=== PATIENT | male | born 1930 | race Caucasian/White ===

== ENCOUNTER 2017-04-13 06:01 | Inpatient (IN) | payer MEDICARE, MEDICAID ==
[~2017-04-13] VITALS: Ht 165.1 cm; Wt 75.0 kg
[~2017-04-13 06:01] MED LIST: ALIG4CAP PO; APRI0.372; ASPI325T PO; ATOR20TA15; AVOD0.5C PO; B-CO1TAB3; FINA5TAB2; METO25TA3; OMEP20TA PO; RIVA4.5C; VITA100064 PO; [UNRECOGNIZED DRUG - CODE]
[2017-04-13] MEDS ORDERED: INSULIN HUMAN REGULAR 1,000 UNITS/10 ML VIAL SQ PRN (06:30)
[2017-04-13] MEDS ORDERED: CHLORHEXIDINE GLUCONATE 2 % 1 PACK (2 CLOTHS) TOPICAL PRN (06:30)
[2017-04-13] MEDS ORDERED: metroNIDAZOLE 500 MG INJ 100 ML IV SCH (06:30)
[2017-04-13] MEDS ORDERED: POVIDONE IODINE 5% (ANTISEPSIS KIT) 4 APPLICATIONS EACH NARE PRN (06:30)
[2017-04-13] MEDS ORDERED: SODIUM CHLORID 0.9% 500 ML IV PRN (06:30)
[2017-04-13] MEDS ORDERED: ALVIMOPAN 12 MG CAPSULE - On Call PO SCH (06:30)
[2017-04-13] MEDS ORDERED: LACTATED RINGER'S 1000 ML IV PRN (06:30)
[2017-04-13] MEDS ORDERED: METOPROLOL TARTRATE 25 MG TAB PO PRN (06:30)
[2017-04-13] MEDS ORDERED: ceFAZolin 2 GM PREMIX 50 ML IV SCH (06:30)
[2017-04-13] MEDS ORDERED: THROMBIN (TOPICAL) 5,000 UNIT VIAL ONE (07:03)
[2017-04-13] MEDS ORDERED: BUPIVACAINE/EPINEPHRINE 0.25% 50 ML VIAL ONE (07:03)
[2017-04-13] MEDS ORDERED: GELATIN 12 MM/7 MM FOAM ONE (07:03)
[2017-04-13] MEDS ORDERED: LIDOCAINE 2%/EPINEPHrine PF 1:200,000 20ML SDV ONE (07:03)
[2017-04-13] MEDS ORDERED: GENTAMICIN SULFATE 80 MG/2 ML VIAL ONE (07:03)
[2017-04-13] MEDS ORDERED: BACITRACIN TOP OINT 15 GM TUBE ONE (07:03)
[2017-04-13] MEDS ORDERED: BUPIVACAINE LIPOSOME PF 1.3% 20 ML VIAL ONE (07:13)
[2017-04-13 07:31] LABS: BICARBONATE 27.8 MEQ/L (21.0-32.0); POTASSIUM 3.9 MEQ/L (3.5-5.1)
[2017-04-13] MEDS ORDERED: FAMOTIDINE 20 MG/2 ML VIAL ONE (08:12)
[2017-04-13] MEDS ORDERED: MIDAZOLAM HCL 2 MG/2 ML VIAL ONE (08:12)
[2017-04-13] MEDS: SODIUM CHLORIDE 0.9% FLUSH 10 ML FLUSH IV FLUSH SCH ×2 (11:30→21:00)
[2017-04-13] MEDS ORDERED: *ONDANSETRON 4 MG VIAL PERIprocedural Use ONLY ONE (11:37)
[2017-04-13] MEDS ORDERED: Post-op Orders (for Pharmacy) MISC XX ONE (11:45)
[2017-04-13] MEDS ORDERED: BENZOCAINE 20% ORAL SPR 60 ML CAN MT PRN (11:45)
[2017-04-13] MEDS ORDERED: NALOXONE HCL 0.4 MG/ML AMP IV PUSH PRN (11:45)
[2017-04-13] MEDS ORDERED: *morphine SULFATE 8 MG/ML PERIprocedure ONLY ONE (11:53)
[2017-04-13] MEDS ORDERED: NEOSTIGMINE 3 MG/3 ML SYR IV ONE (12:00)
[2017-04-13] MEDS ORDERED: ONDANSETRON HCL 4 MG/2 ML VIAL IV PUSH ONE (12:00)
[2017-04-13] MEDS ORDERED: ROCURONIUM INJ 50 MG/5 ML SYRINGE IV PUSH ONE (12:00)
[2017-04-13] MEDS ORDERED: PROPOFOL 200 MG/20 ML AMP IV ONE (12:00)
[2017-04-13] MEDS ORDERED: GLYCOPYRROLATE 1 MG/5 ML SYRINGE IV PUSH ONE (12:00)
[2017-04-13] MEDS ORDERED: DEXAMETHASONE SOD PHOS 4 MG/ML VIAL IV ONE (12:00)
[2017-04-13] MEDS ORDERED: LIDOCAINE HCL 1% PF 5 ML AMPULE OTHER ONE (12:00)
[2017-04-13] MEDS ORDERED: PHENYLEPH/NS 1000 MCG/10 ML SYR IV ONE (12:00)
[2017-04-13] MEDS: D5-NS + KCL 20 MEQ INJ 1,000 ML IV SCH ×2 (12:35→22:30)
--- NOTE | 2017-04-13 13:14 | EKG ---
Date Performed: 04/13/2017 Time Performed: 07:10:58 PTAGE: 87 years EKG: Sinus rhythm WITH SINUS ARRHYTHMIA NORMAL ECG PREVIOUS TRACING : 06/03/2014 12.03 Compared to prior tracing no significant change DOCTOR: Mehrdad Girard Interpretating Date/Time 04/13/2017 13:11:29
[2017-04-13] MEDS ORDERED: DO NOT ADM ANY ANTICOAGULANT DRUGS PRN (13:15)
--- NOTE | 2017-04-13 14:42 | PD.CONS ---
HPI [facility] Consult Requested By Dr. Morrison Reason for Consult Medical management Primary Care Physician Tremaine Adames MD Diagnoses: History of Present Illness Mr. Shore is an 87-year-old elderly male with significant past medical history of hypertension, COPD, CABG 2, AAA repair, NPH with VESSEL SCRAPPER HELPER shunt. Patient has a recent diagnosis of colon cancer, oncologist is Dr. Pena. Patient was admitted under Dr. Morrison's services and underwent laparoscopic partial colectomy as well as revision of VESSEL SCRAPPER HELPER shunt. Patient is resting comfortably, hemodynamically stable. He is currently being monitored in the ICU. He remains nothing by mouth. Denies any chest pain, no shortness of breath. Hospitalist services requested for medical management. (Megan Whalen) Review of Systems Constitutional: DENIES: Diaphoretic episodes, Fatigue, Fever, Weight gain, Weight loss, Chills, Dizziness, Change in appetite, Night Sweats Endocrine: DENIES: Heat/cold intolerance, Polydipsia, Polyuria, Polyphagia Eyes: DENIES: Blurred vision, Diplopia, Eye inflammation, Eye pain, Vision loss , Photosensitivity, Double Vision Ears, nose, mouth, throat: DENIES: Tinnitus, Hearing loss, Vertigo, Nasal discharge, Oral lesions, Throat pain, Hoarseness, Ear Pain, Running Nose, Epistaxis, Sinus Pain, Toothache, Odynophagia Respiratory: DENIES: Apneas, Cough, Snoring, Wheezing, Hemoptysis, Sputum production, Shortness of breath Cardiovascular: DENIES: Chest pain, Palpitations, Syncope, Dyspnea on Exertion , PND, Lower Extremity Edema, Orthopnea, Claudication Gastrointestinal: COMPLAINS OF: Abdominal pain (surgical site ), DENIES: Black stools, Bloody stools, Constipation, Diarrhea, Nausea, Vomiting, Difficulty Swallowing, Anorexia Genitourinary: DENIES: Sexual dysfunction, Urinary frequency, Urinary incontinence, Urgency, Hematuria, Dysuria, Nocturia, Penile Discharge, Testicular Pain, Testicular Swelling Musculoskeletal: DENIES: Joint pain, Muscle aches, Stiffness, Joint Swelling, Back pain, Neck pain Integumentary: DENIES: Abnormal pigmentation, Nail changes, Pruritus, Rash Hematologic/lymphatic: DENIES: Bruising, Lymphadenopathy Immunologic/allergic: DENIES: Eczema, Urticaria Neurologic: DENIES: Abnormal gait, Headache, Localized weakness, Paresthesias, Seizures, Speech Problems, Tremor, Poor Balance Psychiatric: DENIES: Anxiety, Confusion, Mood changes, Depression, Hallucinations, Agitation, Suicidal Ideation, Homicidal Ideation, Delusions ( Megan Whalen) Past Family Social History Past Medical History Colon cancer Stroke Hypertension COPD, not on oxygen at home Coronary artery disease Abdominal aneurysm repair DVT to the right leg Diverticulitis Hyperlipidemia Normal pressure hydrocephalus, has a VESSEL SCRAPPER HELPER shunt GERD Arthritis BPH Past Surgical History VESSEL SCRAPPER HELPER shunt placement on 06/10/[address] Benedict CABG 2 in 2011 Abdominal aneurysm repair Reported Medications Reported Meds & Active Scripts Active Reported Vitamin D3 (Cholecalciferol) 1,000 Unit Tab 1,000 Units PO DAILY Omeprazole 20 Mg Tab 20 Mg PO DAILY B50 Complex Tr (B-Complex W/Biotin & Folic Acid ER) 1 Tab Avodart (Dutasteride) 0.5 Mg Cap 0.5 Mg PO DAILY Aspirin 325 Mg Tab 325 Mg PO DAILY Align (Lactobacillus Rhamnosus (GG)) 4 Mg (1 Billion Cell) Cap 4 Mg PO DAILY Rivastigmine 4.5 Mg Cap Finasteride 5 Mg Tab Atorvastatin (Atorvastatin Calcium) 20 Mg Tab Metoprolol Tartrate 25 Mg Tab Suprep Bowel Prep Liq (Sodium Sulfate-Potassium Sulfate Liq) 480 Ml Soln Apriso (Mesalamine) 0.375 Gm Caper (Megan Whalen) Allergies: Coded Allergies: No Known Allergies (Unverified , 04/13/17) Active Ordered Medications Inpatient Medications Acetaminophen 100 ml @ 400 mls/hr Q6HR IV ; Start 04/13/17 at 18:00; Stop 04/15 at 12:14 Alvimopan (Entereg) 12 mg BID PO ; Start 04/14/17 at 21:00; Stop 04/21/17 at 09 :01 Atorvastatin Calcium (Lipitor) 20 mg DAILY PO ; Start 04/14/17 at 09:00 Benzocaine (Hurricaine 20% Oral Spr) 1 spray UNSCH X1 PRN MT SEE LABEL COMMENTS ; Start 04/13/17 at 11:45; Stop 04/13/17 at 13:15; Status DC Cefazolin Sodium 1000 mg/Sodium Chloride 100 ml @ 200 mls/hr Q8H IV ; Start at 14:00; Stop 04/18/17 at 13:59 Cefazolin Sodium/ Dextrose 50 ml @ 150 mls/hr FITTING ROOM SUPERVISOR IV Last administered on 04/13/17t 07:02; Start 04/13/17 at 06:30; Stop 04/14/17 at 06:29 Chlorhexidine Gluconate (Chlorhexidine 2% Cloth) 3 pack FITTING ROOM SUPERVISOR PRN TOPICAL SEE LABEL COMMENTS Last administered on 04/13/17t 06:15; Start 04/13/17 at 06:30 ; Stop 04/16/17 at 06:29 Diphenhydramine HCl (Benadryl Inj) 25 mg Q6HR PRN IV PUSH ITCHING; Start at 18:00 Enoxaparin Sodium (Lovenox Inj) 40 mg Q24H SQ ; Start 04/14/17 at 10:00 Famotidine (Pepcid Inj) 20 mg Q12HR IV PUSH ; Start 04/13/17 at 21:00 Finasteride (Proscar) 5 mg DAILY PO ; Start 04/14/17 at 09:00; Stop 04/14/17 at 09:00; Status DC Insulin Human Regular (NovoLIN R INJ) See Protocol Table ... FITTING ROOM SUPERVISOR PRN SQ SEE PROTOCOL TABLE; Start 04/13/17 at 06:30; Stop 04/16/17 at 06:29 Lactated Ringer's 1,000 ml @ 30 mls/hr Q24H PRN IV SEE LABEL COMMENTS; Start 04/13/17 at 06:30; Stop 04/16/17 at 06:29 Magnesium Hydroxide (Milk Of Magnesia Liq) 30 ml BID PRN PO CONSTIPATION; Start 04/13/17 at 21:00 Metoprolol Tartrate (Lopressor) 25 mg DAILY PO ; Start 04/14/17 at 09:00 Metronidazole 100 ml @ 200 mls/hr Q8H IV ; Start 04/13/17 at 15:00; Stop at 07:29 Miscellaneous Information ALL NURSING DEPARTME... UNSCH PRN .XX SEE LABEL COMMENTS; Start 04/13/17 at 13:15; Stop 04/14/17 at 13:14 Miscellaneous Information (Post-op Orders (for Pharmacy)) STAT ONCE XX ; Start 04/13/17 at 11:45; Stop 04/13/17 at 13:19; Status DC Naloxone HCl (Narcan Inj) 0.4 mg UNSCH PRN IV PUSH SEE LABEL COMMENTS; Start 04/13/17 at 11:45 Ondansetron HCl (Zofran Inj) 4 mg Q6H PRN IV PUSH NAUSEA OR VOMITING; Start at 18:00 Potassium Chloride/Dextrose/ Sod Cl 1,000 ml @ 95 mls/hr [id number] IV Last administered on 04/13/17 12:35; Start 04/13/17 at 13:15 Povidone Iodine (Betadine 5% Antisepsis Kit) 1 applic FITTING ROOM SUPERVISOR PRN EACH NARE SEE LABEL COMMENTS Last administered on 04/13/17 07:00; Start 04/13/17 at 06:30 ; Stop 04/16/17 at 06:29 Sodium Chloride (NS Flush) 2 ml BID IV FLUSH Last administered on 04/13/17 11: 30; Start 04/13/17 at 11:45 Family History Positive for breast cancer and 1 sister, had another brother with lung cancer Social History Patient is , lives at home with his . Has grown children. Quit smoking 1968, rare alcohol use, no substance abuse. Occasionally uses a walker when he is outside of his home. (Megan Whalen) Physical Exam Vital Signs Vital Signs Date Time Temp Pulse Resp B/P (MAP) Pulse Ox O2 Delivery O2 Flow Rate FiO2 04/13/17 12:15 58 16 153/70 (97) 100 Nasal Cannula 2 04/13/17 12:00 62 16 163/70 (101) 98 Nasal Cannula 2 04/13/17 11:45 64 16 153/70 (97) 99 Nasal Cannula 2 04/13/17 11:30 97.7 70 16 132/59 (83) 97 Nasal Cannula 2 04/13/17 06:50 98.8 95 18 142/67 (92) 96 Physical Exam GENERAL: This is a well-nourished, well-developed patient, in no apparent distress. SKIN: No rashes, ecchymoses or lesions. Cool and dry. HEAD: Atraumatic. Normocephalic. No temporal or scalp tenderness. EYES: Pupils equal round and reactive. Extraocular motions intact. No scleral icterus. No injection or drainage. ENT: Nose without bleeding, purulent drainage or septal hematoma. Throat without erythema, tonsillar hypertrophy or exudate. Uvula midline. Airway patent. NECK: Trachea midline. No JVD or lymphadenopathy. Supple, nontender, no meningeal signs. CARDIOVASCULAR: Regular rate and rhythm with soft murmurs, no gallops, no rubs. RESPIRATORY: Clear to auscultation. Breath sounds equal bilaterally. No wheezes , rales, or rhonchi. GASTROINTESTINAL: Abdomen soft, has midline abdominal incision with dressing. A small amount of sanguinous drainage to distal aspect of dressing. Bowel sounds hypoactive 4. MUSCULOSKELETAL: Extremities without clubbing, cyanosis, or edema. No joint tenderness, effusion, or edema noted. No calf tenderness. Negative Homans sign bilaterally. NEUROLOGICAL: Awakes to voice, oriented 3. Following ommands, answering questions appropriately. Speech is clear. No focal deficits. Laboratory Laboratory Tests Test 04/13/17 06:35 Blood Urea Nitrogen 16 Creatinine 0.98 Random Glucose 99 Calcium Level 9.1 Sodium Level 140 Potassium Level 3.9 Chloride Level 104 Carbon Dioxide Level 27.8 Anion Gap 8 Estimat Glomerular Filtration Rate 72 (Megan Whalen) Result Diagram: 04/13/17 0635 A/P Diagnosis: (1) status post lap partial colectomy and revision of VESSEL SCRAPPER HELPER shunt Status: Acute (2) Colon adenocarcinoma ICD Codes: C18.9 - Malignant neoplasm of colon, unspecified Status: Acute (3) NPH (normal pressure hydrocephalus) ICD Codes: G91.2 - Normal pressure hydrocephalus Status: Chronic (4) S/P VESSEL SCRAPPER HELPER shunt ICD Codes: Z98.2 - S/P VESSEL SCRAPPER HELPER shunt Status: Chronic (5) BPH (benign prostatic hypertrophy) ICD Codes: N40.0 - BPH (benign prostatic hypertrophy) Status: Chronic (6) CAD (coronary artery disease) ICD Codes: I25.10 - CAD (coronary artery disease) Status: Chronic (7) COPD (chronic obstructive pulmonary disease) ICD Codes: J44.9 - Chronic obstructive pulmonary disease, unspecified Status: Chronic (8) History of stroke ICD Codes: Z86.73 - Personal history of transient ischemic attack (TIA), and cerebral infarction without residual deficits Status: Chronic (9) Hypertension ICD Codes: I10 - Essential (primary) hypertension Status: Chronic (10) Hyperlipidemia ICD Codes: E78.5 - Hyperlipidemia, unspecified Status: Chronic (11) BPH (benign prostatic hyperplasia) ICD Codes: N40.0 - Benign prostatic hyperplasia without lower urinary tract symptoms Status: Chronic Assessment and Plan Thank you for this consultation, we will assist with medical management 87-year-old elderly male with recent diagnosis of colon cancer, underwent laparoscopic partial colectomy and revision of VESSEL SCRAPPER HELPER shunt. -Continue postoperative surgical care -Continue with IV fluid -Pain management -wound care -Postoperative antibiotics -Nothing by mouth status -BMP and CBC in the morning History of NPH, VESSEL SCRAPPER HELPER shunt in place. Status post revision of VESSEL SCRAPPER HELPER shunt -Continue to monitor surgical site COPD, stable -Duo nebs 4 times a day as needed for wheezing Hypertension, stable -Continue with metoprolol 25 milligrams by mouth daily BPH -Continue with Proscar Hyperlipidemia -Continue with Lipitor 20 mg by mouth daily Continue with Pepcid 20 mg IV twice a day for GI prophylaxis Continue with Lovenox 40 mg subcutaneous daily for DVT prophylaxis, as well as SCDs Repeat labs in the morning Plan of care has been discussed with the patient, attending and registered nurse. Further management of the patient will be dependent on the hospital course This patient was seen by myself and Dr. Pool, this consultation is written on his behalf (Megan Whalen) Assessment and Plan pt is seen & examined d/w pt d/w Megan d/w RN See consult see orders thanks for the consult will f/u Radha Pool MD Apr 13, 2017 16:25 (Radha Pool MD) Problem Qualifiers (1) CAD (coronary artery disease): Qualified Codes: I25.10 - Atherosclerotic heart disease of jackson coronary artery without angina pectoris (2) COPD (chronic obstructive pulmonary disease): Qualified Codes: J44.9 - Chronic obstructive pulmonary disease, unspecified (3) Hypertension: Qualified Codes: I10 - Essential (primary) hypertension (4) Hyperlipidemia: Qualified Codes: E78.5 - Hyperlipidemia, unspecified (5) BPH (benign prostatic hyperplasia): Megan Whalen Apr 13, 2017 14:42 Radha Pool MD Apr 14, 2017 15:02
[2017-04-13 15:00] VITALS: PULSE 82
[2017-04-13 16:00] VITALS: BP_SYST 143; BP_SYST 166; BP_DIAS 65; BP_DIAS 82; PULSE 54; PULSE 74; PULSE 81; RESP 14; RESP 16; TEMP 97.2; TEMP 97.4; O2SAT 100; O2SAT 99
--- NOTE | 2017-04-13 16:25 | HHI.PR ---
Objective Objective Results - Vital Signs Date Time Temp Pulse Resp B/P (MAP) Pulse Ox O2 Delivery O2 Flow Rate FiO2 04/13/17 13:00 54 16 121/53 (75) 100 Nasal Cannula 2 04/13/17 12:45 58 16 133/60 (84) 100 Nasal Cannula 2 04/13/17 12:30 56 16 134/61 (85) 100 Nasal Cannula 2 04/13/17 12:15 58 16 153/70 (97) 100 Nasal Cannula 2 04/13/17 12:00 62 16 163/70 (101) 98 Nasal Cannula 2 04/13/17 11:45 64 16 153/70 (97) 99 Nasal Cannula 2 04/13/17 11:30 97.7 70 16 132/59 (83) 97 Nasal Cannula 2 04/13/17 06:50 98.8 95 18 142/67 (92) 96 I/O 04/12/17 04/12/17 04/12/17 04/13/17 04/13/17 04/13/17 07:00 15:00 23:00 07:00 15:00 23:00 Intake Total 2150 ml Output Total 520 ml Balance 1630 ml Intake IV Total 50 ml Other 2100 ml Output Urine Total 500 ml Estimated Blood Loss 20 ml Result Diagram: 04/13/17 0635 Other Results Laboratory Tests Test 04/13/17 06:35 Blood Urea Nitrogen 16 Creatinine 0.98 Random Glucose 99 Calcium Level 9.1 Sodium Level 140 Potassium Level 3.9 Chloride Level 104 Carbon Dioxide Level 27.8 Anion Gap 8 Estimat Glomerular Filtration Rate 72 Physical Exam Physical Exam pt is seen & examined d/w pt d/w Megan d/w RN See consult see orders thanks for the consult will f/u Radha Pool MD Apr 13, 2017 16:25
[2017-04-13] MEDS: metroNIDAZOLE 500 MG INJ 100 ML IV SCH ×2 (16:26→21:53)
[2017-04-13] MEDS ORDERED: RESP: ALBUTEROL 2.5 MG/IPRATROPIUM 0.5 MG NEB (PRN) NEB (16:30)
[2017-04-13] MEDS: ACETAMINOPHEN 1000 MG/100 ML 100 ML IV SCH ×2 (17:33→23:10)
[2017-04-13 18:00] VITALS: PULSE 62
[2017-04-13] MEDS ORDERED: diphenhydrAMINE HCL 50 MG/ML VIAL IV PUSH PRN (18:00)
[2017-04-13 20:00] VITALS: BP 142/66; PULSE 60; RESP 22; TEMP 97.9; O2SAT 98
[2017-04-13 20:30] VITALS: O2SAT 95
[2017-04-13] MEDS ORDERED: MAGNESIUM HYDROXIDE SUSP 30 ML CUP PO PRN (21:00)
[2017-04-13] MEDS: FAMOTIDINE 20 MG/2 ML VIAL IV PUSH SCH (21:00)
[2017-04-13 22:00] VITALS: PULSE 62
[2017-04-14] VITALS (13 sets, daily range): BP systolic 100–179; BP diastolic 49–78; PULSE 58–70; RESP 13–23; TEMP 97.6–98.6; O2SAT 96–100
[2017-04-14] MEDS: ACETAMINOPHEN 1000 MG/100 ML 100 ML IV SCH ×4 (05:06→23:05)
[2017-04-14 05:30] LABS: AUTOMATED NEUTROPHIL # 8.2 TH/MM3 (1.8-7.7); BASOPHIL % 0.1 % (0.0-2.0); HEMATOCRIT 30.4 % (39.0-51.0); LYMPH % 5.6 % (9.0-44.0); LYMPHOCYTE # 0.6 TH/MM3 (1.0-4.8); MEAN CELL VOLUME 90.7 FL (80.0-100.0); MEAN CORPUSCULAR HEMOGLOBIN 29.7 PG (27.0-34.0); MEAN CORPUSCULAR HGB CONC 32.8 % (32.0-36.0); MONO % 12.5 % (0.0-8.0); NEUT % 81.8 % (16.0-70.0); PLATELET COUNT 169 TH/MM3 (150-450); RED BLOOD COUNT 3.35 MIL/MM3 (4.50-5.90); RED CELL DISTRIBUTION WIDTH 22.1 % (11.6-17.2)
[2017-04-14 05:42] LABS: BICARBONATE 26.2 MEQ/L (21.0-32.0); POTASSIUM 4.5 MEQ/L (3.5-5.1)
[2017-04-14 05:49] LABS: HEMO FLAGS AUTO DIFF
[2017-04-14] MEDS: metroNIDAZOLE 500 MG INJ 100 ML IV SCH (06:14)
[2017-04-14 08:04] LABS: BANDS 27 % (0-6); NEUTROPHIL # MANUAL DIFF 8.7 TH/MM3 (1.8-7.7); POLYS (SEG NEUTROPHILS) 60 % (16-70); WBC DIFF SAMPLE 100
[2017-04-14 08:05] LABS: PLATELET ESTIMATE SMEAR NORMAL (NORMAL); PLATELET MORPHOLOGY NORMAL (NORMAL); SCAN/DIFF FINAL DIFF MANUAL
[2017-04-14 08:06] LABS: OVALOCYTES 1+ (NORMAL)
[2017-04-14] MEDS ORDERED: ALVIMOPAN 12 MG CAPSULE - Post-op dosing PO SCH (09:00)
[2017-04-14] MEDS ORDERED: FINASTERIDE 5 MG TAB PO SCH (09:00)
[2017-04-14] MEDS: METOPROLOL TARTRATE 25 MG TAB PO SCH (09:59)
[2017-04-14] MEDS: SODIUM CHLORIDE 0.9% FLUSH 10 ML FLUSH IV FLUSH SCH ×2 (09:59→20:58)
[2017-04-14] MEDS: ATORVASTATIN 20 MG TAB PO SCH (09:59)
[2017-04-14] MEDS: ENOXAPARIN SODIUM 40 MG/0.4 ML SYRINGE SQ SCH (10:00)
[2017-04-14] MEDS: FINASTERIDE 5 MG TAB PO SCH (10:00)
[2017-04-14] MEDS: FAMOTIDINE 20 MG/2 ML VIAL IV PUSH SCH ×2 (10:08→20:58)
[2017-04-14] MEDS: D5-NS + KCL 20 MEQ INJ 1,000 ML IV SCH ×2 (10:08→20:51)
--- NOTE | 2017-04-14 13:20 | HHI.PR ---
Subjective Subjective Notes Says he is having some hallucinations Some moderate pains in abdomen Objective Vitals/I&O Vital Signs Date Time Temp Pulse Resp B/P (MAP) Pulse Ox O2 Delivery O2 Flow Rate FiO2 04/14/17 09:54 97 Nasal Cannula 2.00 04/14/17 06:00 64 04/14/17 04:00 98.2 13 100/49 (66) Labs Laboratory Tests Test 04/14/17 04:37 White Blood Count 10.0 Red Blood Count 3.35 Hemoglobin 10.0 Hematocrit 30.4 Mean Corpuscular Volume 90.7 Mean Corpuscular Hemoglobin 29.7 Mean Corpuscular Hemoglobin Concent 32.8 Red Cell Distribution Width 22.1 Platelet Count 169 Mean Platelet Volume 8.8 Neutrophils (%) (Auto) 81.8 Lymphocytes (%) (Auto) 5.6 Monocytes (%) (Auto) 12.5 Eosinophils (%) (Auto) 0.0 Basophils (%) (Auto) 0.1 Neutrophils # (Auto) 8.2 Lymphocytes # (Auto) 0.6 Monocytes # (Auto) 1.3 Eosinophils # (Auto) 0.0 Basophils # (Auto) 0.0 CBC Comment AUTO DIFF Differential Total Cells Counted 100 Neutrophils % (Manual) 60 Band Neutrophils % 27 Lymphocytes % 6 Monocytes % 7 Neutrophils # (Manual) 8.7 Differential Comment FINAL DIFF MANUAL Platelet Estimate NORMAL Platelet Morphology Comment NORMAL Ovalocytes 1+ Blood Urea Nitrogen 17 Creatinine 1.00 Random Glucose 153 Calcium Level 7.8 Sodium Level 141 Potassium Level 4.5 Chloride Level 108 Carbon Dioxide Level 26.2 Anion Gap 7 Estimat Glomerular Filtration Rate 71 Abdomen: Non-distended, Post-op tenderness Narrative Exam Dressing clean and dry A/P Assessment and Plan POD #1 Open partial colectomy Urine output adequate Minimize pain meds due to visual hallucinations - pt. states he had this during last hospitalization in [place] Plan: Keep in [facility] today Transfer to floor in AM and remove martin cath Modesto Romero MD Apr 14, 2017 13:20
--- NOTE | 2017-04-14 14:30 | HHI.PR ---
Subjective History of Present Illness I'm okay Belly pain is in control/pain meds are helping Nausea or vomiting Positive flatus No BM No fever or chills No chest pain or shortness of breath Offers no other complain Vitals/Results Vital Signs Vital Signs Date Time Temp Pulse Resp B/P (MAP) Pulse Ox O2 Delivery O2 Flow Rate FiO2 04/14/17 14:00 66 04/14/17 12:00 68 04/14/17 12:00 98.0 68 23 159/67 (97) 98 04/14/17 10:00 68 04/14/17 09:54 97 Nasal Cannula 2.00 04/14/17 08:00 63 04/14/17 08:00 98.1 63 20 135/63 (87) 97 04/14/17 07:00 97 Nasal Cannula 2.00 04/14/17 06:00 64 04/14/17 04:00 98.2 60 13 100/49 (66) 99 04/14/17 04:00 60 04/14/17 02:00 58 04/14/17 00:00 58 04/14/17 00:00 98.0 58 17 150/66 (94) 100 04/13/17 22:00 62 04/13/17 20:30 95 Nasal Cannula 2.00 04/13/17 20:00 97.9 60 22 142/66 (91) 98 04/13/17 20:00 60 04/13/17 19:00 100 Nasal Cannula 2.00 04/13/17 18:00 62 04/13/17 16:00 81 04/13/17 16:00 97.4 54 14 143/65 (91) 100 04/13/17 15:00 82 CBC/BMP: 04/14/17 0437 04/14/17 0437 Lab Results Laboratory Tests Test 04/14/17 04:37 White Blood Count 10.0 TH/MM3 Red Blood Count 3.35 MIL/MM3 Hemoglobin 10.0 GM/DL Hematocrit 30.4 % Mean Corpuscular Volume 90.7 FL Mean Corpuscular Hemoglobin 29.7 PG Mean Corpuscular Hemoglobin Concent 32.8 % Red Cell Distribution Width 22.1 % Platelet Count 169 TH/MM3 Mean Platelet Volume 8.8 FL Neutrophils (%) (Auto) 81.8 % Lymphocytes (%) (Auto) 5.6 % Monocytes (%) (Auto) 12.5 % Eosinophils (%) (Auto) 0.0 % Basophils (%) (Auto) 0.1 % Neutrophils # (Auto) 8.2 TH/MM3 Lymphocytes # (Auto) 0.6 TH/MM3 Monocytes # (Auto) 1.3 TH/MM3 Eosinophils # (Auto) 0.0 TH/MM3 Basophils # (Auto) 0.0 TH/MM3 CBC Comment AUTO DIFF Differential Total Cells Counted 100 Neutrophils % (Manual) 60 % Band Neutrophils % 27 % Lymphocytes % 6 % Monocytes % 7 % Neutrophils # (Manual) 8.7 TH/MM3 Differential Comment FINAL DIFF MANUAL Platelet Estimate NORMAL Platelet Morphology Comment NORMAL Ovalocytes 1+ Blood Urea Nitrogen 17 MG/DL Creatinine 1.00 MG/DL Random Glucose 153 MG/DL Calcium Level 7.8 MG/DL Sodium Level 141 MEQ/L Potassium Level 4.5 MEQ/L Chloride Level 108 MEQ/L Carbon Dioxide Level 26.2 MEQ/L Anion Gap 7 MEQ/L Estimat Glomerular Filtration Rate 71 ML/MIN Physical Exam General General Appearance: No Acute Distress, Comfortable Appearance Remarks Elderly male, resting in bed, not in any acute distress Eyes Eye Exam: Pupils Equal Ears & Nose Ears & Nose Exam: Nasal Mucosa [place] Throat Throat Exam: Oral Mucosa [place] & Moist Neck Neck Exam: Neck Supple, Trachea Midline Pulmonary Resp Exam: Clear Bilaterally, Breath Sounds Equal, No Distress Cardiology CV Exam: Regular, Normal Sinus Rhythm Gastrointestinal/Abdomen GI Exam: Soft, Bowel Sounds Present GI Remarks Dressing intact, drain is in place. Positive expected tenderness. Genitourinary Remarks Fournier catheter is in place, and half filled with gopal urine Integumentary Skin Exam: Warm, Dry Extremeties Extremities Exam: No Edema, Pedal Pulses Palpable Neurologic Neuro Exam: Alert, Awake, Oriented, Speech Clear, Moving All Extremities Psychiatric Psych Exam: Appropriate Responses VTE Prophylaxis VTE Prophylaxis Meds: Lovenox PUD Prophylasis PUD Remarks Pepcid Assessment/Plan Assessment/Plan Colon cancer s/p open partial colectomy POD #1 Hypertension Hyperlipidemia COPD, Coronary artery disease status post CABG 2012 History Abdominal aneurysm repair History DVT to the right leg History of stroke Normal pressure hydrocephalus, has a MEDICAL INSURANCE CLAIMS SPECIALIST shunt GERD Arthritis BPH History of diverticular disease Plan Postop care per surgery Oxygen IV analgesics IV fluids Empiric prophylactic IV antibiotic Currently nothing by mouth except meds Alvimopan to promote gut function Control blood pressure, beta macrina Statin Aerosol treatment Incentive spirometer GI protection DVT prophylaxis A.m. lab Will follow Radha Pool MD Apr 14, 2017 14:30
[2017-04-14] MEDS: MORPHINE SULFATE 4 MG/ML INJ IV PUSH PRN (16:33)
[2017-04-14] MEDS: ALVIMOPAN 12 MG CAPSULE PO SCH (20:58)
[2017-04-14] MEDS: ONDANSETRON HCL 4 MG/2 ML VIAL IV PUSH PRN (22:10)
[2017-04-15] VITALS (11 sets, daily range): BP systolic 133–171; BP diastolic 60–76; PULSE 62–72; RESP 17–23; TEMP 96.3–99.5; O2SAT 97–98
[2017-04-15] MEDS: MORPHINE SULFATE 4 MG/ML INJ IV PUSH PRN (05:04)
[2017-04-15] MEDS: ACETAMINOPHEN 1000 MG/100 ML 100 ML IV SCH ×2 (05:04→12:27)
[2017-04-15] MEDS: ONDANSETRON HCL 4 MG/2 ML VIAL IV PUSH PRN ×2 (05:04→18:41)
[2017-04-15 05:36] LABS: BICARBONATE 23.3 MEQ/L (21.0-32.0); POTASSIUM 4.4 MEQ/L (3.5-5.1)
[2017-04-15] MEDS: D5-NS + KCL 20 MEQ INJ 1,000 ML IV SCH ×2 (07:14→12:42)
[2017-04-15] MEDS: ATORVASTATIN 20 MG TAB PO SCH (09:16)
[2017-04-15] MEDS: ENOXAPARIN SODIUM 40 MG/0.4 ML SYRINGE SQ SCH (09:16)
[2017-04-15] MEDS: FAMOTIDINE 20 MG/2 ML VIAL IV PUSH SCH ×2 (09:16→21:11)
[2017-04-15] MEDS: METOPROLOL TARTRATE 25 MG TAB PO SCH (09:17)
[2017-04-15] MEDS: ALVIMOPAN 12 MG CAPSULE PO SCH ×2 (09:17→21:10)
[2017-04-15] MEDS: FINASTERIDE 5 MG TAB PO SCH (09:18)
[2017-04-15] MEDS: SODIUM CHLORIDE 0.9% FLUSH 10 ML FLUSH IV FLUSH SCH ×2 (09:18→21:16)
--- NOTE | 2017-04-15 12:31 | HHI.PR ---
Subjective Remarks He is lying in the bed at this time and reports that "I feel pretty good". He is getting a liquid diet and appears to be tolerating it well. There is further report of good tolerance of the current medication regimen. His pain is controlled with the current analgesic support. Objective - Vital Signs Date Time Temp Pulse Resp B/P (MAP) Pulse Ox O2 Delivery O2 Flow Rate FiO2 04/15/17 06:00 65 04/15/17 04:07 98 Nasal Cannula 2.00 04/15/17 04:00 69 04/15/17 04:00 98.8 69 22 159/69 (99) 98 04/15/17 02:00 62 04/15/17 00:00 99.5 64 20 157/68 (97) 98 04/15/17 00:00 64 04/14/17 22:00 64 04/14/17 20:00 98.6 70 22 179/78 (111) 97 04/14/17 20:00 70 04/14/17 19:00 99 Nasal Cannula 2.00 04/14/17 18:00 68 04/14/17 16:00 64 04/14/17 16:00 97.6 64 19 142/70 (94) 96 04/14/17 14:00 66 I/O 04/14/17 04/14/17 04/14/17 04/15/17 04/15/17 04/15/17 06:59 14:59 22:59 06:59 14:59 22:59 Intake Total 1301 ml 1240 ml 1183 ml Output Total 300 ml 550 ml 550 ml Balance 1001 ml 690 ml 633 ml Intake Oral 240 ml 60 ml IV Total 1301 ml 1000 ml 1123 ml Output Urine Total 300 ml 550 ml 550 ml # Bowel Movements 0 0 0 Result Diagram: 04/14/17 0437 04/15/17 0459 Objective Remarks GENERAL: Alert and in mild to moderate distress for postoperative pain. SKIN: Warm and dry. Surgical area looks okay. HEAD: Normocephalic. Atraumatic. Nontender. EYES: No scleral icterus. No injection or drainage. NECK: Supple, trachea midline. No JVD or lymphadenopathy. CARDIOVASCULAR: Regular rate and rhythm without murmurs, gallops, or rubs. RESPIRATORY: Breath sounds equal bilaterally. No accessory muscle use. GASTROINTESTINAL: Abdomen is soft and nondistended. Bowel sounds are present. MUSCULOSKELETAL: No cyanosis, or edema. BACK: Nontender without obvious deformity. No CVA tenderness. A/P Assessment and Plan ASSESSMENT 1. Laparoscopic Right Colectomy with Ileo-Colonic Anastomosis. 2. Extensive Lysis of Adhesions. 3. Adenocarcinoma of the Colon. 4. Revision of Peritoneal Portion of Ventricular- Peritoneal Shunt. 5. Normal Pressure Hydrocephalus. 6. Lower Gastrointestinal Bleed. 7. 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 PLAN 1. Monitor blood pressure closely with intravenous supplemental control medication. 2. Continue analgesic support as per the surgical attending. 3. Follow up laboratory assessment. 4. Activity as per the surgical attending. 5. Okay to transfer out of the SICU to the Med-Surg Unit today. Tremaine Adames MD Apr 15, 2017 12:31
--- NOTE | 2017-04-15 14:46 | HHI.PR ---
Subjective Subjective Notes feels better since he passed flatus, had BMs. being transferred to 1719. Objective Vitals/I&O Vital Signs Date Time Temp Pulse Resp B/P (MAP) Pulse Ox O2 Delivery O2 Flow Rate FiO2 04/15/17 14:00 67 04/15/17 12:00 97.8 23 133/60 (84) 97 04/15/17 07:00 Nasal Cannula 2.00 Labs Laboratory Tests Test 04/15/17 04:59 Blood Urea Nitrogen 11 Creatinine 0.82 Random Glucose 110 Calcium Level 7.9 Sodium Level 139 Potassium Level 4.4 Chloride Level 110 Carbon Dioxide Level 23.3 Anion Gap 6 Estimat Glomerular Filtration Rate 89 Cardiovascular: Regular, Other (LILLIAN) Lungs: Clear Abdomen: Non-distended, Other (BS normal. Incision with minimal serosanguinous drainage, no erythema.), Post-op tenderness Extremities: No edema A/P Assessment and Plan POstop colon resection. Having bowel function. Advance diet, fulls to regular as tolerated. OK from surgery standpoint for transfer to floor. electrolytes look fine Manuel Bello MD Apr 15, 2017 14:46
[2017-04-16] VITALS: BP 136/62; PULSE 76; RESP 17; TEMP 96.2; O2SAT 98
[2017-04-16] MEDS: D5-NS + KCL 20 MEQ INJ 1,000 ML IV SCH ×2 (00:30→12:29)
[2017-04-16] MEDS: ONDANSETRON HCL 4 MG/2 ML VIAL IV PUSH PRN ×2 (03:02→15:43)
[2017-04-16] MEDS: MORPHINE SULFATE 4 MG/ML INJ IV PUSH PRN ×2 (05:31→10:57)
[2017-04-16 08:00] VITALS: BP 194/86; PULSE 84; RESP 17; TEMP 98.3; O2SAT 97
[2017-04-16] MEDS: ENOXAPARIN SODIUM 40 MG/0.4 ML SYRINGE SQ SCH (08:25)
[2017-04-16] MEDS: ALVIMOPAN 12 MG CAPSULE PO SCH ×2 (08:27→20:44)
[2017-04-16] MEDS: ATORVASTATIN 20 MG TAB PO SCH (08:27)
[2017-04-16] MEDS: FINASTERIDE 5 MG TAB PO SCH (08:27)
[2017-04-16] MEDS: FAMOTIDINE 20 MG/2 ML VIAL IV PUSH SCH ×2 (08:27→20:45)
[2017-04-16] MEDS: SODIUM CHLORIDE 0.9% FLUSH 10 ML FLUSH IV FLUSH SCH ×2 (08:28→20:45)
[2017-04-16] MEDS: METOPROLOL TARTRATE 25 MG TAB PO SCH (08:28)
[2017-04-16] MEDS: ENALAPRILAT 2.5 MG/2 ML VIAL IV PUSH PRN ×2 (08:34→20:51)
--- NOTE | 2017-04-16 10:34 | MP ---
cc: SUSHIL WONG DATE OF SURGERY: 04/13/2017 PREOPERATIVE DIAGNOSIS: 1. Locally advanced right lower lobe non-small cell lung cancer. 2. Right colonic adenocarcinoma with chronic anemia and gastrointestinal bleed. 3. 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 4. Ventral incisional hernia, approximately 5 cm and epigastric area. POSTOPERATIVE DIAGNOSIS: 1. Locally advanced right lower lobe non-small cell lung cancer. 2. Right colonic adenocarcinoma with chronic anemia and gastrointestinal bleed. 3. 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 4. Ventral incisional hernia, approximately 5 cm and epigastric area. OPERATION: 1. Laparoscopic converted to open right ascending/right colectomy with ileocolonic anastomosis. 2. Extensive lysis of adhesions greater than 45 minutes. 3. Revision of peritoneal portion of ventricular peritoneal shunt. ATTENDING PHYSICIAN: Sushil Wong MD. ASSISTANTS: Medical student #3, Cale Stafford. INTRAOPERATIVE CONSULTATION: Placed to Dr. Ronald Benedict MD. Neurosurgery for evaluation of the shunt prior to closure. BLOOD LOSS: Less then 100 cc. FINDINGS: Right colonic adenocarcinoma in the cecum. Dense adhesions, particularly at the midline precluding any possibility of laparoscopic surgery. Small epigastric midline hernia incarcerated with falciform ligament. No evidence of liver disease or metastatic disease in the abdomen. INDICATIONS FOR PROCEDURE: The patient is an 87 year-old male, multiple medical comorbidities or recently diagnosed right lower lobe, non-small cell lung cancer as well as significant blood loss anemia from chronic bleeding from a locally advanced colonic adenocarcinoma. The patient was seen by myself with family and discussed the treatment options including palliative treatment with surgery as well as radiation. The risks, benefits and alternatives to all surgical approaches open and laparoscopic were discussed and agreed to undergo the procedure. The patient is evaluated by Dr. Benedict as well and recommended revision of the shunt due to malplacement of the patients distal shunt tip into the subcutaneous tissue and a seroma cavity in the subcutaneous tissue. PROCEDURE: The patient was taken to the operating room and placed in the supine position. The patient was placed under general endotracheal anesthesia. The patient was prepped and draped in normal sterile fashion. Time out was performed. We preformed a Adithya direct ancillary technique laparoscopically just below the umbilicus. We incised this with 11 blade scalp, spread down and opened the midline fascia under direct visualization. We are able to use S-retractors to gently spread bluntly through into the abdominal cavity where we saw intraperitoneal area with some adhesions and small bowel. We then placed a 10 mm trocar under direct visualization into the abdomen and insufflate the abdomen. We were able to place a 5 mm 30 degree camera into the abdomen and very quickly realized that the abdomen was essentially frozen from the abdominal wall to all the viscera and there is absolutely no space to work laparoscopically for resection of the patients malignancy. At this point and time we removed the port and converted to open procedure, midline incision proximally 5 cm above and below the umbilicus with the 15 blade scalpel. We used the bovie electrocautery to dissect this subcutaneous tissue and open the fascia for the full length of the incision. We used Kochers and retractors to take down the adhesions sharply mainly with the Metzenbaum scissors against the small bowel and the abdominal wall. We then also divided most of the interloop adhesions and divided the right colon which was adhesed to some of the small bowel as well, this took approximately an hour of lysis of adhesions total time. Once we were able to do this we were able to place a Ernst retractor to gain better exposure. We were then able to mobilize the white line of Toldt using the bovie electrocautery and also the Endseal device. We had quickly identified the tumor in the right colon. There was an area of palpable lymphadenopathy but this was in the noted pack to be taken with the right colon. We divided the tricuspid insufficiency with blue load on the Solsberry stapler and the transverse colon right, just distal to the hepatic flexure with the blue load on echelon stapler. We started using the Enseal device to take the mesentery with exception of the ileocolic vessels as these were taken at their origin with the white load on the Eschelon stapler. We had excellent hemostasis at the staple line and the specimen was passed off for permanent processing. We had at this point no adenopathy remaining, we had good viable transverse colon and distal ileum and no evidence of any other disease in the liver or peritoneum. We returned our attention toward the anastomosis and the patient remained completely stable with minimal blood loss. We preformed side to side functional end to end anastomosis using blue loads on the echelon stapler. We closed the mesenteric defect with 3-0 silk sutures and also reinforced the staple line proximal and distal at the anastomosis with real silk sutures as well. We did also tack down some omentum around the anastomosis from the transverse colon. At this point and time we irrigated out the abdomen out with approximately six liters of sterile saline until all suctioning was clear. We had an excellent hemostasis, We had zero contamination or spillage during the procedure. At this point and time Dr. Benedict came to the room, evaluated the patient and the shunt situation and was updated on the patients situation in surgery and due to having zero spillage felt that it was safe to place the tip of the shunt through the peritoneum which had retracted chronically into the subcutaneous tissue. We did make a small incision along the posterior rectus sheath under the seroma area and spread this gently with a hemostat. We entered the cavity and drained approximately 200 cc of cerebrospinal fluid in that cavity. We reached up and grabbed this with the DeBakey and brought this into the peritoneal cavity. With minimal tension this was approximately 10 cm length into the peritoneal cavity. We then used 3-0 Vicryl suture to close this defect around the shunt as it kind of held it in position as recommended by Dr. Benedict. We insured that this was flowing with no obstruction, kinking and laid in good position with tip over toward the left lateral abdomen. Again Dr. Benedict at this point felt that this was appropriate position, revision and he did leave the room at that time. We then turned our attention toward closure. We did close the patients midline. We did incorporate the inferior portion of the hernia, epigastric hernia into our closure and closed the fascia with a running #1 loop PDS suture. Then closed the skin with skin silvina and a sterile dressing was applied. The patient tolerated the procedure well, no apparent complications. All counts were correct and I was scrubbed for the entire procedure. MD AZAM Robertson/ernie /1:52 PM /10:19 AM KAVITHA
--- NOTE | 2017-04-16 11:20 | HHI.PR ---
Subjective Subjective Notes Feeling sluggish Nauseous overnight CAITIE Nuno at bedside Objective Vitals/I&O Vital Signs Date Time Temp Pulse Resp B/P (MAP) Pulse Ox O2 Delivery O2 Flow Rate FiO2 04/16/17 08:00 98.3 84 17 194/86 (122) 97 04/15/17 20:00 Nasal Cannula 2.00 Cardiovascular: Regular Lungs: Clear Abdomen: Other (midline incision with silvina; minimal drainage on bandage; tender at incision sites; minimally distended ) Extremities: No edema A/P Assessment and Plan 87 year old male POD3 colon resection -Continue sipping on liquids for now -Zofran for nausea -Labs today -IVF until able to tolerate regular diet -OOB; PT eval and treat -Discussed with CAITIE Nuno Attending Statement The exam, history, and the medical decision-making described in the above note were completed with the assistance of the mid-level provider. I reviewed and agree with the findings presented. I attest that I had a [id number] encounter with the patient on the same day, and personally performed and documented my assessment and findings in the medical record. Physical Exam: Abdomen soft, postop tender, no rebound tenderness or guarding, incision c/d/i Lizbeth Donnelly Apr 16, 2017 11:20 Lance Morrison MD Apr 27, 2017 16:28
[2017-04-16 12:00] VITALS: BP 170/79; PULSE 78; RESP 19; TEMP 98.4; O2SAT 95
[2017-04-16 16:00] VITALS: BP 131/59; PULSE 68; RESP 18; TEMP 98; O2SAT 98
[2017-04-16] MEDS ORDERED: PYRIDOSTIGMINE INJ 10 MG/2 ML AMP IV STA (20:15)
[2017-04-16 20:22] VITALS: BP 190/86; PULSE 88; RESP 17; TEMP 98.4; O2SAT 100
[2017-04-16] MEDS ORDERED: METOCLOPRAMIDE HCL 10 MG/2 ML VIAL IV ONE (20:45)
[2017-04-16 22:54] LABS: AUTOMATED NEUTROPHIL # 2.4 TH/MM3 (1.8-7.7); BASOPHIL % 0.3 % (0.0-2.0); EOSINOPHIL # 0.1 TH/MM3 (0-0.4); EOSINOPHIL % 2.1 % (0.0-4.0); HEMATOCRIT 35.8 % (39.0-51.0); LYMPH % 20.1 % (9.0-44.0); LYMPHOCYTE # 0.9 TH/MM3 (1.0-4.8); MEAN CELL VOLUME 91.2 FL (80.0-100.0); MEAN CORPUSCULAR HEMOGLOBIN 29.1 PG (27.0-34.0); MEAN CORPUSCULAR HGB CONC 31.9 % (32.0-36.0); NEUT % 56.5 % (16.0-70.0); PLATELET COUNT 236 TH/MM3 (150-450); RED BLOOD COUNT 3.93 MIL/MM3 (4.50-5.90); RED CELL DISTRIBUTION WIDTH 21.7 % (11.6-17.2); WHITE BLOOD COUNT 4.3 TH/MM3 (4.0-11.0)
[2017-04-16 23:08] LABS: HEMO FLAGS AUTO DIFF
[2017-04-16 23:14] LABS: BICARBONATE 25.7 MEQ/L (21.0-32.0); POTASSIUM 3.9 MEQ/L (3.5-5.1)
[2017-04-17 00:25] VITALS: BP 112/53; PULSE 72; RESP 18; TEMP 97.5; O2SAT 95
[2017-04-17] MEDS: D5-NS + KCL 20 MEQ INJ 1,000 ML IV SCH ×3 (01:31→22:35)
[2017-04-17 01:42] LABS: PLATELET ESTIMATE SMEAR NORMAL (NORMAL); PLATELET MORPHOLOGY NORMAL (NORMAL); SCAN/DIFF AUTO DIFF CONFIRMED
[2017-04-17 01:43] LABS: ACANTHOCYTES OCC (NORMAL); KERATOCYTES OCC (NORMAL); OVALOCYTES 1+ (NORMAL)
[2017-04-17] MEDS: ONDANSETRON HCL 4 MG/2 ML VIAL IV PUSH PRN (03:52)
[2017-04-17] MEDS: MORPHINE SULFATE 4 MG/ML INJ IV PUSH PRN (03:56)
[2017-04-17 08:00] VITALS: BP 146/65; PULSE 77; RESP 17; TEMP 97.4; O2SAT 98
[2017-04-17] MEDS: FINASTERIDE 5 MG TAB PO SCH (08:39)
[2017-04-17] MEDS: ALVIMOPAN 12 MG CAPSULE PO SCH ×2 (08:39→19:30)
[2017-04-17] MEDS: ATORVASTATIN 20 MG TAB PO SCH (08:39)
[2017-04-17] MEDS: METOPROLOL TARTRATE 25 MG TAB PO SCH (08:39)
[2017-04-17] MEDS: SODIUM CHLORIDE 0.9% FLUSH 10 ML FLUSH IV FLUSH SCH ×2 (08:40→19:31)
[2017-04-17] MEDS: FAMOTIDINE 20 MG/2 ML VIAL IV PUSH SCH ×2 (08:40→19:31)
[2017-04-17] MEDS: ENOXAPARIN SODIUM 40 MG/0.4 ML SYRINGE SQ SCH (10:16)
--- NOTE | 2017-04-17 10:45 | HHI.PR ---
Subjective Subjective Notes Resting in bed Feeling much better today No abdominal pain Has had BM Objective Vitals/I&O Vital Signs Date Time Temp Pulse Resp B/P (MAP) Pulse Ox O2 Delivery O2 Flow Rate FiO2 04/17/17 08:00 97.4 77 17 146/65 (92) 98 04/16/17 20:45 Nasal Cannula 2.00 Labs Laboratory Tests Test 04/16/17 22:39 White Blood Count 4.3 Red Blood Count 3.93 Hemoglobin 11.4 Hematocrit 35.8 Mean Corpuscular Volume 91.2 Mean Corpuscular Hemoglobin 29.1 Mean Corpuscular Hemoglobin Concent 31.9 Red Cell Distribution Width 21.7 Platelet Count 236 Mean Platelet Volume 8.8 Neutrophils (%) (Auto) 56.5 Lymphocytes (%) (Auto) 20.1 Monocytes (%) (Auto) 21.0 Eosinophils (%) (Auto) 2.1 Basophils (%) (Auto) 0.3 Neutrophils # (Auto) 2.4 Lymphocytes # (Auto) 0.9 Monocytes # (Auto) 0.9 Eosinophils # (Auto) 0.1 Basophils # (Auto) 0.0 CBC Comment AUTO DIFF Differential Comment AUTO DIFF CONFIRMED Platelet Estimate NORMAL Platelet Morphology Comment NORMAL Ovalocytes 1+ Acanthocytes OCC Keratocytes OCC Blood Urea Nitrogen 9 Creatinine 0.97 Random Glucose 129 Calcium Level 8.0 Sodium Level 142 Potassium Level 3.9 Chloride Level 110 Carbon Dioxide Level 25.7 Anion Gap 6 Estimat Glomerular Filtration Rate 73 Cardiovascular: Regular Lungs: Clear Abdomen: Other (midline incision with c/d/i dressing; stapled ) Extremities: No edema A/P Assessment and Plan 87 year old male POD4 colon resection -Continue fulls; advance as tolerated -Zofran for nausea -Labs stable -OOB; PT eval and treat -Discussed with CAITIE Malave Attending Statement The exam, history, and the medical decision-making described in the above note were completed with the assistance of the mid-level provider. I reviewed and agree with the findings presented. I attest that I had a [id number] encounter with the patient on the same day, and personally performed and documented my assessment and findings in the medical record. Physical Exam: Abdomen soft, no rebound tenderness or guarding, incision clean, intact pain ok, continue OOB, await bowel function Lizbeth Donnelly Apr 17, 2017 10:45 Lance Morrison MD Apr 27, 2017 16:34
[2017-04-17 12:00] VITALS: BP 161/77; PULSE 75; RESP 16; TEMP 98.3; O2SAT 98
[2017-04-17] MEDS: ENALAPRILAT 2.5 MG/2 ML VIAL IV PUSH PRN (12:52)
[2017-04-17] MEDS: SODIUM CHLORIDE 0.9% FLUSH 10 ML FLUSH IV FLUSH PRN (12:55)
[2017-04-17 16:00] VITALS: BP 153/71; PULSE 60; RESP 17; TEMP 96; O2SAT 97
--- NOTE | 2017-04-17 19:58 | HHI.PR ---
Subjective Remarks He was seen earlier by surgery. He states that he feels better today with only occasional nausea complaints. He appears to be tolerating the current therapeutics and is starting physical therapy. Objective - Vital Signs Date Time Temp Pulse Resp B/P (MAP) Pulse Ox O2 Delivery O2 Flow Rate FiO2 04/17/17 16:00 96.0 60 17 153/71 (98) 97 04/17/17 12:00 98.3 75 16 161/77 (105) 98 04/17/17 08:30 98 Nasal Cannula 2.00 04/17/17 08:00 97.4 77 17 146/65 (92) 98 04/17/17 04:01 18 04/17/17 00:25 97.5 72 18 112/53 (72) 95 04/16/17 20:45 Nasal Cannula 2.00 04/16/17 20:22 98.4 88 17 190/86 (120) 100 I/O 04/16/17 04/16/17 04/16/17 04/17/17 04/17/17 04/17/17 07:00 15:00 23:00 07:00 15:00 23:00 Intake Total 240 ml 1100 ml 475 ml 1680 ml 300 ml Output Total 1000 ml 650 ml 800 ml 200 ml Balance -760 ml 1100 ml -175 ml 880 ml 100 ml Intake Oral 240 ml 375 ml 580 ml 300 ml IV Total 1100 ml 100 ml 1100 ml Output Urine Total 1000 ml 650 ml 800 ml 200 ml # Voids 4 # Bowel Movements 1 1 3 6 Result Diagram: 04/16/17223804/16/172238 Objective Remarks GENERAL: Alert and reports some nausea. SKIN: Warm and dry. HEAD: Normocephalic. Atraumatic. EYES: No scleral icterus. No injection or drainage. NECK: Supple, trachea midline. No JVD or lymphadenopathy. CARDIOVASCULAR: Regular rate and rhythm without murmurs, gallops, or rubs. RESPIRATORY: Breath sounds equal bilaterally. No accessory muscle use. GASTROINTESTINAL: Abdomen soft, nondistended. MUSCULOSKELETAL: No cyanosis, or edema. BACK: Nontender without obvious deformity. No CVA tenderness. A/P Assessment and Plan ASSESSMENT 1. Laparoscopic Right Colectomy with Ileo-Colonic Anastomosis. 2. Extensive Lysis of Adhesions. 3. Adenocarcinoma of the Colon. 4. Revision of Peritoneal Portion of Ventricular- Peritoneal Shunt. 5. Normal Pressure Hydrocephalus. 6. Lower Gastrointestinal Bleed. 7. 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 PLAN 1. Continue with the current medication regimen, except add Lisinopril. 2. Activity as per the Surgical Attending. 3. Continue with Physical Therapy. 4. Follow up labs as needed. 5. DVT, PE and PUD prophylaxis. Tremaine Adames MD Apr 17, 2017 19:58
[2017-04-17 20:00] VITALS: BP 166/79; PULSE 85; RESP 22; TEMP 97.8; O2SAT 99
[2017-04-17 22:00] VITALS: O2SAT 97
[2017-04-18] VITALS: BP 153/67; PULSE 89; RESP 20; TEMP 99.2; O2SAT 96
[2017-04-18] MEDS: PANTOPRAZOLE SOD 20 MG DELAYED RELEASE TAB PO SCH (05:05)
[2017-04-18] MEDS: SODIUM CHLORIDE 0.9% FLUSH 10 ML FLUSH IV FLUSH SCH ×2 (07:57→21:09)
[2017-04-18 08:00] VITALS: BP 116/56; PULSE 93; RESP 18; TEMP 96.3; O2SAT 95
[2017-04-18] MEDS: CHOLECALCIFEROL (VIT D3) 1000 UNIT TAB PO SCH (08:01)
[2017-04-18] MEDS: ALVIMOPAN 12 MG CAPSULE PO SCH ×2 (08:01→21:16)
[2017-04-18] MEDS: ATORVASTATIN 20 MG TAB PO SCH (08:01)
[2017-04-18] MEDS: METOPROLOL TARTRATE 25 MG TAB PO SCH (08:01)
[2017-04-18] MEDS: FAMOTIDINE 20 MG/2 ML VIAL IV PUSH SCH ×2 (08:01→21:16)
[2017-04-18] MEDS: LACTOBACILLUS ACIDOPHILUS TAB PO SCH (08:01)
[2017-04-18] MEDS: FINASTERIDE 5 MG TAB PO SCH (08:01)
[2017-04-18] MEDS: LISINOPRIL 10 MG TAB PO SCH (08:02)
[2017-04-18 08:51] LABS: HEMATOCRIT 29.7 % (39.0-51.0); MEAN CELL VOLUME 89.9 FL (80.0-100.0); MEAN CORPUSCULAR HEMOGLOBIN 29.3 PG (27.0-34.0); MEAN CORPUSCULAR HGB CONC 32.6 % (32.0-36.0); PLATELET COUNT 185 TH/MM3 (150-450); RED BLOOD COUNT 3.31 MIL/MM3 (4.50-5.90); RED CELL DISTRIBUTION WIDTH 20.8 % (11.6-17.2); WHITE BLOOD COUNT 5.6 TH/MM3 (4.0-11.0)
[2017-04-18 09:01] LABS: HEMO FLAGS AUTO DIFF
[2017-04-18] MEDS: D5-NS + KCL 20 MEQ INJ 1,000 ML IV SCH (09:18)
[2017-04-18 09:19] LABS: BICARBONATE 24.1 MEQ/L (21.0-32.0); MAGNESIUM 1.6 MG/DL (1.5-2.5); POTASSIUM 3.5 MEQ/L (3.5-5.1)
[2017-04-18 09:37] LABS: BANDS 53 % (0-6); EOSINOPHILS 2 % (0-4); NEUTROPHIL # MANUAL DIFF 4.1 TH/MM3 (1.8-7.7); POLYS (SEG NEUTROPHILS) 21 % (16-70); WBC DIFF SAMPLE 100
[2017-04-18 09:38] LABS: PLATELET ESTIMATE SMEAR NORMAL (NORMAL); PLATELET MORPHOLOGY NORMAL (NORMAL); SCAN/DIFF FINAL DIFF MANUAL
[2017-04-18 09:44] VITALS: O2SAT 95
[2017-04-18] MEDS: ENOXAPARIN SODIUM 40 MG/0.4 ML SYRINGE SQ SCH (09:47)
--- NOTE | 2017-04-18 10:14 | HHI.PR ---
Subjective Subjective Notes Resting in bed No issues CAITIE Malave at bedside Objective Vitals/I&O Vital Signs Date Time Temp Pulse Resp B/P (MAP) Pulse Ox O2 Delivery O2 Flow Rate FiO2 04/18/17 09:44 95 Nasal Cannula 2.00 04/18/17 08:00 96.3 93 18 116/56 (76) Labs Laboratory Tests Test 04/18/17 08:00 White Blood Count 5.6 Red Blood Count 3.31 Hemoglobin 9.7 Hematocrit 29.7 Mean Corpuscular Volume 89.9 Mean Corpuscular Hemoglobin 29.3 Mean Corpuscular Hemoglobin Concent 32.6 Red Cell Distribution Width 20.8 Platelet Count 185 Mean Platelet Volume 8.9 CBC Comment AUTO DIFF Differential Total Cells Counted 100 Neutrophils % (Manual) 21 Band Neutrophils % 53 Lymphocytes % 5 Monocytes % 19 Eosinophils % 2 Neutrophils # (Manual) 4.1 Differential Comment FINAL DIFF MANUAL Platelet Estimate NORMAL Platelet Morphology Comment NORMAL Red Cell Morphology Comment NORMAL Blood Urea Nitrogen 7 Creatinine 0.81 Random Glucose 113 Calcium Level 7.8 Magnesium Level 1.6 Sodium Level 143 Potassium Level 3.5 Chloride Level 111 Carbon Dioxide Level 24.1 Anion Gap 8 Estimat Glomerular Filtration Rate 90 Cardiovascular: Regular Lungs: Clear Abdomen: Other (midline incision ---silvina in place; dressing changed; non tender ) Extremities: No edema A/P Assessment and Plan 87 year old male POD5 colon resection -Continue fulls; advance as tolerated -Zofran for nausea -Labs today stable -+BM -Decrease IVF -OOB; PT eval and treat -Discussed with CAITIE Malave Attending Statement The exam, history, and the medical decision-making described in the above note were completed with the assistance of the mid-level provider. I reviewed and agree with the findings presented. I attest that I had a [id number] encounter with the patient on the same day, and personally performed and documented my assessment and findings in the medical record. Physical Exam: Abdomen soft, no rebound tenderness or guarding, incisional pain minimal continue supportive care/pain control/PT Lizbeth Donnelly Apr 18, 2017 10:14 Lance Morrison MD Apr 27, 2017 16:39
[2017-04-18] MEDS: ONDANSETRON HCL 4 MG/2 ML VIAL IV PUSH PRN (10:40)
[2017-04-18] MEDS: SODIUM CHLORIDE 0.9% FLUSH 10 ML FLUSH IV FLUSH PRN (10:42)
[2017-04-18 12:00] VITALS: BP 126/67; PULSE 93; RESP 17; TEMP 99.6; O2SAT 91
[2017-04-18 16:00] VITALS: BP 116/57; PULSE 93; RESP 17; TEMP 98.3; O2SAT 98
[2017-04-18 20:00] VITALS: BP 121/51; PULSE 93; RESP 22; TEMP 96.5; O2SAT 97
[2017-04-19] VITALS (9 sets, daily range): BP systolic 108–149; BP diastolic 51–71; PULSE 67–92; RESP 17–20; TEMP 95.2–98.2; O2SAT 97–100
[2017-04-19] MEDS: PANTOPRAZOLE SOD 20 MG DELAYED RELEASE TAB PO SCH (05:20)
[2017-04-19] MEDS: D5-NS + KCL 20 MEQ INJ 1,000 ML IV SCH (05:20)
--- NOTE | 2017-04-19 08:54 | HHI.PR ---
Subjective Remarks He is lying in the bed and eating his breakfast. He states that his appetite is not very good. He has been working with the physical therapist. He appears to be tolerating the current regimen of medications well. Objective - Vital Signs Date Time Temp Pulse Resp B/P (MAP) Pulse Ox O2 Delivery O2 Flow Rate FiO2 04/19/17 08:00 97.1 91 17 136/69 (91) 100 04/19/17 07:30 97.1 91 17 136/69 (91) 100 04/19/17 05:14 97 Nasal Cannula 2.00 04/19/17 00:00 97.0 92 20 119/51 (73) 98 04/18/17 21:10 97 Nasal Cannula 2.00 04/18/17 20:00 96.5 93 22 121/51 (74) 97 04/18/17 16:00 98.3 93 17 116/57 (76) 98 04/18/17 12:00 99.6 93 17 126/67 (86) 91 04/18/17 09:44 95 Nasal Cannula 2.00 I/O 04/18/17 04/18/17 04/18/17 04/19/17 04/19/17 04/19/17 06:59 14:59 22:59 06:59 14:59 22:59 Intake Total 340 ml 960 ml 120 ml Output Total 550 ml Balance 340 ml 410 ml 120 ml Intake Oral 240 ml 960 ml 120 ml IV Total 100 ml Output Urine Total 550 ml # Voids 6 4 # Bowel Movements 6 9 4 Result Diagram: 04/18/17 0800 04/18/17 0800 Objective Remarks GENERAL: Alert and well oriented. SKIN: Warm and dry. HEAD: Normocephalic. EYES: No scleral icterus. No injection or drainage. NECK: Supple, trachea midline. No JVD or lymphadenopathy. CARDIOVASCULAR: Regular rate and rhythm without murmurs, gallops, or rubs. RESPIRATORY: Breath sounds equal bilaterally. No accessory muscle use. GASTROINTESTINAL: Abdomen soft, non-tender, nondistended. MUSCULOSKELETAL: No cyanosis, or edema. BACK: Nontender without obvious deformity. No CVA tenderness. A/P Assessment and Plan ASSESSMENT 1. Laparoscopic Right Colectomy with Ileo-Colonic Anastomosis. 2. Extensive Lysis of Adhesions. 3. Adenocarcinoma of the Colon. 4. Revision of Peritoneal Portion of Ventricular- Peritoneal Shunt. 5. Normal Pressure Hydrocephalus. 6. Lower Gastrointestinal Bleed. 7. 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 PLAN 1. Continue with the full current medication regimen. 2. Will replete the potassium and magnesium. 3. Use of Megace to help with his appetite. 4. continue with activity as per Physical Therapy. 5. DVT and PE prophylaxis. Tremaine Adames MD Apr 19, 2017 08:54
[2017-04-19] MEDS ORDERED: POTASSIUM CHLORIDE 20 MEQ CONTROLLED RELEASE TAB PO ONE (09:00)
[2017-04-19] MEDS: MAGNESIUM SULFATE 1 GM PREMIX 100 ML IV SCH ×2 (10:57→12:57)
[2017-04-19] MEDS: ENOXAPARIN SODIUM 40 MG/0.4 ML SYRINGE SQ SCH (10:58)
[2017-04-19] MEDS: ALVIMOPAN 12 MG CAPSULE PO SCH ×2 (10:58→22:43)
[2017-04-19] MEDS: LISINOPRIL 10 MG TAB PO SCH (10:59)
[2017-04-19] MEDS: CHOLECALCIFEROL (VIT D3) 1000 UNIT TAB PO SCH (10:59)
[2017-04-19] MEDS: METOPROLOL TARTRATE 25 MG TAB PO SCH (11:00)
[2017-04-19] MEDS: FAMOTIDINE 20 MG/2 ML VIAL IV PUSH SCH ×2 (11:00→22:43)
[2017-04-19] MEDS: SODIUM CHLORIDE 0.9% FLUSH 10 ML FLUSH IV FLUSH SCH ×2 (11:02→22:43)
[2017-04-19] MEDS: ATORVASTATIN 20 MG TAB PO SCH (11:05)
[2017-04-19] MEDS: FINASTERIDE 5 MG TAB PO SCH (11:05)
[2017-04-19 12:11] LABS: C. DIFF EPI 027 PRESUMPTIVE NEGATIVE (NEGATIVE)
[2017-04-19] MEDS: MEGESTROL ACETATE SUSP 400 MG/10 ML CUP PO SCH ×2 (12:57→22:43)
[2017-04-19] MEDS: LACTOBACILLUS ACIDOPHILUS TAB PO SCH (12:57)
--- NOTE | 2017-04-19 14:15 | HHI.PR ---
Subjective Subjective Notes Resting in bed No issues overnight Had some scrambled eggs for breakfast this AM Objective Vitals/I&O Vital Signs Date Time Temp Pulse Resp B/P (MAP) Pulse Ox O2 Delivery O2 Flow Rate FiO2 04/19/17 11:50 96.3 84 17 136/59 (84) 99 04/19/17 09:17 2.00 04/19/17 05:14 Nasal Cannula Labs Laboratory Tests Test 04/19/17 10:55 Stool C. difficile Toxin (PCR) NEGATIVE Stl C. difficile Toxin Epiderm 027 PRESUMPTIVE NEGATIVE Cardiovascular: Regular Lungs: Clear Abdomen: Other (midline incisions with silvina; non tender; non distended ) Extremities: No edema A/P Assessment and Plan 87 year old male POD6 colon resection -Tolerating heart healthy diet -Replace electrolytes as necessary -+BM -DC IVF -OOB; PT eval and treat Lizbeth Donnelly Apr 19, 2017 14:14
[2017-04-20] VITALS: BP 141/68; PULSE 93; RESP 20; TEMP 98.6; O2SAT 97
[2017-04-20] MEDS: PANTOPRAZOLE SOD 20 MG DELAYED RELEASE TAB PO SCH (06:30)
[2017-04-20 08:40] VITALS: BP 148/69; PULSE 85; RESP 24; TEMP 97.4; O2SAT 97
[2017-04-20] MEDS: SODIUM CHLORIDE 0.9% FLUSH 10 ML FLUSH IV FLUSH SCH (09:00)
[2017-04-20] MEDS: LACTOBACILLUS ACIDOPHILUS TAB PO SCH (10:03)
[2017-04-20] MEDS: ATORVASTATIN 20 MG TAB PO SCH (10:03)
[2017-04-20] MEDS: LISINOPRIL 10 MG TAB PO SCH (10:04)
[2017-04-20] MEDS: MEGESTROL ACETATE SUSP 400 MG/10 ML CUP PO SCH (10:04)
[2017-04-20] MEDS: METOPROLOL TARTRATE 25 MG TAB PO SCH (10:04)
[2017-04-20] MEDS: ALVIMOPAN 12 MG CAPSULE PO SCH (10:04)
[2017-04-20] MEDS: CHOLECALCIFEROL (VIT D3) 1000 UNIT TAB PO SCH (10:04)
[2017-04-20] MEDS: ENOXAPARIN SODIUM 40 MG/0.4 ML SYRINGE SQ SCH (10:04)
[2017-04-20] MEDS: FAMOTIDINE 20 MG/2 ML VIAL IV PUSH SCH (10:05)
[2017-04-20] MEDS: FINASTERIDE 5 MG TAB PO SCH (10:05)
== END 2017-04-20 13:45 | DRG 330 ==
LOC: HSDI 06:01 → N03B 13:44 → N07B 04-15 14:57
PROVIDERS: ADMIT Surgery; ATTEND Surgery
PROC: 0DNW0ZZ Release Peritoneum, Open Approach (ICD-10-PCS; 2017-04-13)
PROC: 0WWG0JZ Revision of Synthetic Substitute in Peritoneal Cavity, Open Approach (ICD-10-PCS; 2017-04-13)
PROC: 0WQF0ZZ Repair Abdominal Wall, Open Approach (ICD-10-PCS; 2017-04-13)
PROC: 0DTF0ZZ Resection of Right Large Intestine, Open Approach (ICD-10-PCS; principal; 2017-04-13 08:11)
PROC: 0DJD4ZZ Inspection of Lower Intestinal Tract, Percutaneous Endoscopic Approach (ICD-10-PCS; 2017-04-13 08:11)
DX: C18.0 Malignant neoplasm of cecum (principal); G91.2 (Idiopathic) normal pressure hydrocephalus; J44.9 Chronic obstructive pulmonary disease, unspecified; C34.31 Malignant neoplasm of lower lobe, right bronchus or lung; T85.02XA Displacement of ventricular intracranial (communicating) shunt, initial encounter; K92.2 Gastrointestinal hemorrhage, unspecified; K43.0 Incisional hernia with obstruction, without gangrene; D50.0 Iron deficiency anemia secondary to blood loss (chronic); Z95.1 Presence of aortocoronary bypass graft; I25.10 Atherosclerotic heart disease of native coronary artery without angina pectoris; Z87.891 Personal history of nicotine dependence; I10 Essential (primary) hypertension; E78.5 Hyperlipidemia, unspecified; Z86.718 Personal history of other venous thrombosis and embolism; Y83.8 Other surgical procedures as the cause of abnormal reaction of the patient, or of later complication, without mention of misadventure at the time of the procedure; K66.0 Peritoneal adhesions (postprocedural) (postinfection); Z53.31 Laparoscopic surgical procedure converted to open procedure; K21.9 Gastro-esophageal reflux disease without esophagitis; N40.0 Benign prostatic hyperplasia without lower urinary tract symptoms; Z79.82 Long term (current) use of aspirin; Z86.73 Personal history of transient ischemic attack (TIA), and cerebral infarction without residual deficits
CPT/HCPCS: 80048; 83735; 85007; 85025; 85027; 86850; 86900; 86901; 86920; 87493; 87641; 88309; 93005; 94150; C9290; J0131; J0690; J1100; J1580; J1650; J2250; J2270; J2370; J2405; J2710; J2765; J3010; J3475; J3480

== ENCOUNTER 2017-05-27 00:14 | Observation (INO) | payer MEDICARE, MEDICAID ==
[~2017-05-27] VITALS: Ht 165.1 cm; Wt 65.0 kg
[~2017-05-27 00:14] MED LIST changes: +ASPI-183 PO; -ASPI325T PO; -OMEP20TA PO; +OMEP20TA93 PO; -[UNRECOGNIZED DRUG - CODE]
[2017-05-27 00:22] VITALS: BP 157/73; PULSE 94; RESP 19; TEMP 99.2; O2SAT 97
--- NOTE | 2017-05-27 00:36 | PD ---
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 His hemoglobin was 9. They had contacted Dr. Romero regarding the case and he agreed to admit the patient as transfer here. Case was discussed with Dr. Romero who states that he like the patient to be medically admitted with GI consult and consult to general surgery. He feels that the bleeding can be scoped first by GI and if it is at the surgical site, it can be cauterized. Modifying Factors: None Associated Signs & Symptoms: GI bleeding Risk Factors: Recent surgery 2 weeks ago, colon resection PFSH Past Medical History Arthritis: Yes Asthma: No Autoimmune Disease: No Anxiety: No Depression: No Heart Rhythm Problems: No Cancer: Yes (lung ) Cardiovascular Problems: Yes High Cholesterol: Yes (Hypercholesteremia) Chemotherapy: No Chest Pain: No Congestive Heart Failure: No COPD: No Cerebrovascular Accident: No Diabetes: No Endocrine: No GERD: Yes Genitourinary: No Hepatitis: No Hiatal Hernia: No Immune Disorder: No Kidney Stones: No Musculoskeletal: No Neurologic: No Psychiatric: No Reproductive: No Respiratory: No Migraines: No Radiation Therapy: No Renal Failure: No Seizures: No Sickle Cell Disease: No Sleep Apnea: No Thyroid Disease: No Ulcer: Yes Past Surgical History Abdominal Surgery: Yes (diverticulitis) AICD: No Arteriovenous Shunt: Yes Body Medical Devices: MAY HAVE SHUNTS BUT CANT RECALL Cardiac Surgery: Yes (AA, 2 bypass,colon resection) Ear Surgery: No Endocrine Surgery: No Eye Surgery: No Genitourinary Surgery: No Gynecologic Surgery: No Insulin Pump: Yes Joint Replacement: Yes Oral Surgery: No Pacemaker: No Thoracic Surgery: No Social History Tobacco Use: No Substance Use: No Allergies-Medications (Allergen,Severity, Reaction): Coded Allergies: No Known Allergies (Unverified , 04/13/17) Reported Meds & Prescriptions Reported Meds & Active Scripts Active Reported Vitamin D3 (Cholecalciferol) 1,000 Unit Tab 1,000 Units PO DAILY Omeprazole 20 Mg Tab 20 Mg PO DAILY B50 Complex Tr (B-Complex W/Biotin & Folic Acid ER) 1 Tab Avodart (Dutasteride) 0.5 Mg Cap 0.5 Mg PO DAILY Aspirin 325 Mg Tab 325 Mg PO DAILY Align (Lactobacillus Rhamnosus (GG)) 4 Mg (1 Billion Cell) Cap 4 Mg PO DAILY Rivastigmine 4.5 Mg Cap Finasteride 5 Mg Tab Atorvastatin (Atorvastatin Calcium) 20 Mg Tab Metoprolol Tartrate 25 Mg Tab Apriso (Mesalamine) 0.375 Gm Caper Review of Systems Except as stated in HPI: all other systems reviewed are Neg Physical Exam Narrative GENERAL: Well-nourished, well-developed elderly white male patient in no acute distress. SKIN: Focused skin assessment warm/dry. HEAD: Normocephalic. EYES: No scleral icterus. No injection or drainage. NECK: Supple, trachea midline. No JVD or lymphadenopathy. CARDIOVASCULAR: Regular rate and rhythm without murmurs, gallops, or rubs. RESPIRATORY: Breath sounds equal bilaterally. No accessory muscle use. GASTROINTESTINAL: Abdomen soft, mildly tender in the epigastrium and right upper quadrant where there is a large mass palpable, nondistended. Midline incision appears to be healing well. MUSCULOSKELETAL: No cyanosis, or edema. BACK: Nontender without obvious deformity. No CVA tenderness. Data Data Last Documented VS Vital Signs Date Time Temp Pulse Resp B/P (MAP) Pulse Ox O2 Delivery O2 Flow Rate FiO2 05/27/17 00:22 99.2 94 19 157/73 (101) 97 Orders Orders Complete Blood Count With Diff (05/27/17 00:29) [facility] Medical Decision Making Medical Screen Exam Complete: Yes Emergency Medical Condition: Yes Medical Record Reviewed: Yes Differential Diagnosis GI bleeding Narrative Course Patient is a transfer from [facility], accepted by Dr. Romero. A repeat H &H was done. Planning to admit to hospital medically with consult to GI and surgery. Case is discussed with Dr. Adames for admission. Diagnosis Primary Impression: GI bleed Admitting Information Admitting Physician Requests: Admit Mary Guardado MD May 27, 2017 00:36
[2017-05-27] MEDS ORDERED: IOHEXOL 350 MG/ML 10 ML VIAL (for RAD DIAG) IVCONTRAST ONE (00:38)
[2017-05-27 04:20] LABS: AUTOMATED NEUTROPHIL # 5.9 TH/MM3 (1.8-7.7); BASOPHIL # 0.1 TH/MM3 (0-0.2); BASOPHIL % 0.7 % (0.0-2.0); EOSINOPHIL # 1.6 TH/MM3 (0-0.4); EOSINOPHIL % 17.1 % (0.0-4.0); HEMATOCRIT 29.2 % (39.0-51.0); HEMO FLAGS DIFF FINAL; LYMPHOCYTE # 0.9 TH/MM3 (1.0-4.8); MEAN CELL VOLUME 88.9 FL (80.0-100.0); MEAN CORPUSCULAR HEMOGLOBIN 29.4 PG (27.0-34.0); MEAN CORPUSCULAR HGB CONC 33.1 % (32.0-36.0); MONO % 11.5 % (0.0-8.0); NEUT % 61.7 % (16.0-70.0); PLATELET COUNT 265 TH/MM3 (150-450); RED BLOOD COUNT 3.29 MIL/MM3 (4.50-5.90); RED CELL DISTRIBUTION WIDTH 16.1 % (11.6-17.2); WHITE BLOOD COUNT 9.5 TH/MM3 (4.0-11.0)
[2017-05-27 04:42] VITALS: BP 146/67; PULSE 94; RESP 16; TEMP 96.8; O2SAT 95
[2017-05-27 07:31] LABS: BICARBONATE 24.3 MEQ/L (21.0-32.0); MAGNESIUM 1.8 MG/DL (1.5-2.5); POTASSIUM 3.7 MEQ/L (3.5-5.1)
[2017-05-27 08:00] VITALS: BP 124/58; PULSE 91; RESP 16; TEMP 97.2; O2SAT 92
[2017-05-27] MEDS: PANTOPRAZOLE SODIUM 40 MG VIAL IV PUSH SCH ×2 (09:35→20:37)
[2017-05-27 10:04] LABS: HEMATOCRIT 29.3 % (39.0-51.0); REVIEW FLAG FINAL
--- NOTE | 2017-05-27 11:14 | PD.CONS ---
HPI History of Present Illness This is a 87 year old with significant past medical history of hypertension, COPD, CABG 2, AAA repair, NPH with SURGICAL INSTRUMENT MECHANIC shunt. Patient has a recent diagnosis of colon cancer and lung cancer on PET scan, oncologist is Dr. Pena. Patient underwent partial colectomy as well as revision of SURGICAL INSTRUMENT MECHANIC shunt with Dr. Morrison on (04/13/17). Patient states he has been having rectal bleeding since the surgery, this is significant amount of rolo blood, hasn't had any bleeding since yesterday. Brandan nausea, vomiting, abd pain or black stools. He has been having loose stools. Hgb on admission is 9.7. He tells me, there's plans to start radiation for the lung cancer. (Jerardo Estevez) PFSH Past Medical History Colon cancer Lung cancer Stroke Hypertension COPD, not on oxygen at home Coronary artery disease Abdominal aneurysm repair DVT to the right leg Diverticulitis Hyperlipidemia Normal pressure hydrocephalus, has a SURGICAL INSTRUMENT MECHANIC shunt GERD Arthritis BPH Past Surgical History partial colectomy as well as revision of SURGICAL INSTRUMENT MECHANIC shunt with Dr. Morrison on (04/23). SURGICAL INSTRUMENT MECHANIC shunt placement on 06/10/[address] Benedict CABG 2 in 2011 Abdominal aneurysm repair (Jerardo Estevez) Coded Allergies: No Known Allergies (Unverified , 04/13/17) Medications Current Medications Medications (Trade) Dose Ordered Sig/Adela Route Start Time Stop Time Status Last Admin (Protonix Inj) 40 mg Q12H IV PUSH 05/27/17 09:00 05/27/17 09:35 Family History No family hx of colon cancer Social History Former smoker No alcohol No illicit drug use (Jerardo Estevez) Review of Systems Constitutional: COMPLAINS OF: Fatigue Endocrine: DENIES: Polyuria Eyes: DENIES: Double Vision Ears, nose, mouth, throat: DENIES: Hoarseness Respiratory: COMPLAINS OF: Shortness of breath Cardiovascular: DENIES: Lower Extremity Edema Gastrointestinal: COMPLAINS OF: Bloody stools, Diarrhea, DENIES: Abdominal pain , Black stools, Constipation, Nausea, Vomiting, Difficulty Swallowing, Anorexia , Odynophagia, Swelling of Abdomen, Heartburn, Hematemesis Genitourinary: DENIES: Hematuria Musculoskeletal: DENIES: Neck pain Integumentary: DENIES: Jaundice Hematologic/lymphatic: DENIES: Bruising Immunologic/allergic: DENIES: Eczema Neurologic: DENIES: Abnormal gait Psychiatric: DENIES: Anxiety (WillaalvaroJerardo) GI Exam Vitals I&O Vital Signs Date Time Temp Pulse Resp B/P (MAP) Pulse Ox O2 Delivery O2 Flow Rate FiO2 05/27/17 08:00 97.2 91 16 124/58 (80) 92 05/27/17 04:42 96.8 94 16 146/67 (93) 95 05/27/17 00:51 19 05/27/17 00:22 99.2 94 19 157/73 (101) 97 I/O 05/26/17 05/26/17 05/26/17 05/27/17 05/27/17 05/27/17 07:00 15:00 23:00 07:00 15:00 23:00 Output Total 300 ml Balance -300 ml Output Urine Total 300 ml Laboratory Test 05/27/17 00:45 05/27/17 04:37 05/27/17 09:28 White Blood Count 9.5 TH/MM3 Red Blood Count 3.29 MIL/MM3 Hemoglobin 9.7 GM/DL 9.6 GM/DL Hematocrit 29.2 % 29.3 % Mean Corpuscular Volume 88.9 FL Mean Corpuscular Hemoglobin 29.4 PG Mean Corpuscular Hemoglobin Concent 33.1 % Red Cell Distribution Width 16.1 % Platelet Count 265 TH/MM3 Mean Platelet Volume 7.7 FL Neutrophils (%) (Auto) 61.7 % Lymphocytes (%) (Auto) 9.0 % Monocytes (%) (Auto) 11.5 % Eosinophils (%) (Auto) 17.1 % Basophils (%) (Auto) 0.7 % Neutrophils # (Auto) 5.9 TH/MM3 Lymphocytes # (Auto) 0.9 TH/MM3 Monocytes # (Auto) 1.1 TH/MM3 Eosinophils # (Auto) 1.6 TH/MM3 Basophils # (Auto) 0.1 TH/MM3 CBC Comment DIFF FINAL Differential Comment Blood Urea Nitrogen 14 MG/DL Creatinine 0.94 MG/DL Random Glucose 89 MG/DL Calcium Level 8.2 MG/DL Magnesium Level 1.8 MG/DL Sodium Level 139 MEQ/L Potassium Level 3.7 MEQ/L Chloride Level 106 MEQ/L Carbon Dioxide Level 24.3 MEQ/L Anion Gap 9 MEQ/L Estimat Glomerular Filtration Rate 76 ML/MIN Physical Examination HEENT:normocephalic; atraumatic; no jaundice. NECK: Neck is supple, no JVD, no lymphadenopathy. CHEST: Chest is clear to auscultation and percussion. CARDIAC: Regular rate and rhythm with no gallop or rubs. ABDOMEN: Soft, nondistended, nontender; no hepatosplenomegaly; bowel sounds are present in all four quadrants. mid abd healed surgical wound EXTREMITIES: No clubbing, cyanosis, or edema. SKIN: Normal; no rash; no jaundice. THERMOGRAPH OPERATOR: No focal deficits; alert and oriented times three. (Jerardo Estevez) Assessment and Plan Plan - Lower GI bleed- Patient underwent partial colectomy as well as revision of SURGICAL INSTRUMENT MECHANIC shunt with Dr. Morrison on (04/13/17). Patient states he has been having rectal bleeding since the surgery. this is significant amount of rolo blood, hasn't had any bleeding since yesterday. Brandan nausea, vomiting, abd pain or black stools. He has been having loose stools. Hgb on admission is 9.7. - Hx of colon cancer- Patient underwent partial colectomy as well as revision of SURGICAL INSTRUMENT MECHANIC shunt with Dr. Morrison on (04/23/17). - New diagnosis of lung cancer- He tells me, there's plans to start radiation for the lung cancer. - This is a 87 year old with significant past medical history of hypertension, COPD, CABG 2, AAA repair, NPH with SURGICAL INSTRUMENT MECHANIC shunt. Plan: - Clears - Colonosocpy in the am - NPO bk - Daniel today - Monitor hh - Transfuse as needed - GS on the case - Supportive care - Patient seen and examined by Dr. Rosales and myself and this note is written on his behalf. (Jerardo Estevez) Physician Comments Patient seen and examined Agree with above Continue with current supportive care Monitor labs Plan for colonoscopy tomorrow (Tyrell Rosales MD) Jerardo Estevez May 27, 2017 11:14 Tyrell Rosales MD May 27, 2017 16:57
[2017-05-27 12:00] VITALS: BP 120/82; PULSE 100; RESP 18; TEMP 96.8; O2SAT 96
--- NOTE | 2017-05-27 12:11 | MB ---
cc: ISELA VICTOR M.D. DATE OF CONSULTATION: 05/27/2017 REASON FOR CONSULTATION: GI bleed. HISTORY OF PRESENT ILLNESS Mr. Shore is an 87-year-old patient of Dr. Lance Morrison, who two months ago underwent a colon resection. He presented to the [facility] ER yesterday complaining of lower GI bleed. He reported several episodes of a large amount of bright red blood per rectum, filling the toilet. He had no abdominal pain whatsoever. His surgical history is remarkable for undergoing a laparoscopic-assisted hemicolectomy by Dr. Morrison on 04/16/2017 for a right colon cancer. He also had repair of a CUSTOMER SERVICES COORDINATOR shunt which was malpositioned. As stated the patient was essentially asymptomatic but had several episodes of bleeding in the toilet. He therefore went to the emergency room. He was transferred over to [facility] after consultation with Dr. Romero. Dr. Romero requested the patient be admitted to the medical service with consultations to surgery as well as GI for further workup and evaluation of his GI bleeding. PAST MEDICAL HISTORY 1. Lung cancer. 2. Colon cancer. 3. Hypertension. 4. DVT. 5. Reflux. 6. Hydrocephalus PAST SURGICAL HISTORY: 1. CUSTOMER SERVICES COORDINATOR shunt 2. CABG. 3. Triple A repair. 4. Recent colon surgery as documented in the HPI. MEDICATIONS: The list is extensive. Please see the EMR. ALLERGIES: NO KNOWN DRUG ALLERGIES. SOCIAL HISTORY: He does not smoke or drink. FAMILY HISTORY: Colon cancer. PHYSICAL EXAMINATION: Temperature is 98, pulse is 90, blood pressure 150/70, respiratory 20. GENERAL: A pleasant elderly gentleman sitting in the bed, watching television, in no distress. HEENT: Pupils equal, round and reactive to light. Sclerae are white. Oropharynx is clear and moist. Neck: Supple. No masses. Lungs: Clear to auscultation bilaterally. Heart: S1-S2. No murmur. Abdomen: Soft, non-tender, non-distended. Active bowel sounds. He has a midline scar that is well-healed. No obvious hernia or wound complication. Extremities: Free range of motion x4. Neurologic: Alert and oriented x 3. LABORATORY DATA White blood cell count 9, hemoglobin 9.7, this morning it is 9.6, platelet count is 265. Electrolytes are within normal limits. IMAGING STUDIES None. IMPRESSION: Lower GI bleed, status post right hemicolectomy. PLAN At this point I advised the patient he needs further workup by GI to elucidate the source of the bleeding. It could be coming from his anastomose but the patient reports it as bright red blood so I feel it is more likely in the lower GI in the rectosigmoid region. The patient does have a history of hemorrhoids and certainly this could be the source of the bleeding. At this point, I do not think any surgical intervention is warranted. Dr. Morrison will be notified of the patient's admission and now will be followed during his hospitalization. MD JOSELIN Marquez/AVERY /11:20 AM /12:07 PM
--- NOTE | 2017-05-27 14:35 | HHI.HP ---
History of Present Illness Service INTERNAL MEDICINE Primary Care Physician TREMAINE ADAMES M.D. Admission Diagnosis G. I. BLEED Diagnoses: History of Present Illness This patient is an 87 year old male who has a history of being with a great deal of nausea and had episodes of diarrhea. He was found with some blood in the stool. Due to this and his weakened state, he was transported to the emergency room at [facility]. He was transferred to the [facility] Emergency Room and admitted to have further assessment and treatment of this presentation. There is denial of any recent major adverse changes by report. He has a history of colon cancer and is status post colectomy done by Dr. Lance Morrison about two months ago. He reports having a poor appetite over the past few weeks also. Review of Systems Constitutional: COMPLAINS OF: Fatigue, Weight loss, Change in appetite Respiratory: COMPLAINS OF: Cough, Sputum production Cardiovascular: COMPLAINS OF: Dyspnea on Exertion Gastrointestinal: COMPLAINS OF: Diarrhea, Nausea, Anorexia Genitourinary: COMPLAINS OF: Urinary incontinence, Urgency Neurologic: COMPLAINS OF: Poor Balance Past Family Social History Allergies: Coded Allergies: No Known Allergies (Unverified , 04/13/17) Past Medical History 1. Hypertension. 2. Chronic Obstructive Pulmonary Disease. 3. Cerebral Vascular Accident. 4. Coronary Artery Disease. 5. Abdominal Aortic Aneurysm. 6. Diverticulitis. 7. Deep Vein Thrombosis of Right Leg. 8. Hyperlipidemia. 9. Benign Prostatic Hypertrophy. 10. Gastroesophageal Reflux Disease. 11. Normal Pressure Hydrocephalus. 12. Colon Cancer. 13. Right Lung Cancer. Past Surgical History 1. 2 Vessel Coronary Artery Bypass Graft Surgery. 2. Abdominal Aortic Aneurysm Repair. 3. Ventriculo-Peritoneal Shunt Placement. 4. Right Colectomy. 5. Family History Multiple family members have Diabetes Mellitus, Type 2 and Hypertension. Social History He is and currently lives in an assisted living facility. He is a nonsmoker. He does not routinely drink alcohol. There is no use of recreational drugs. Physical Exam Vital Signs Vital Signs Date Time Temp Pulse Resp B/P (MAP) Pulse Ox O2 Delivery O2 Flow Rate FiO2 05/27/17 12:00 96.8 100 18 120/82 (95) 96 05/27/17 08:00 97.2 91 16 124/58 (80) 92 05/27/17 04:42 96.8 94 16 146/67 (93) 95 05/27/17 00:51 19 05/27/17 00:22 99.2 94 19 157/73 (101) 97 Physical Exam GENERAL: This is a well-nourished, well-developed patient, in no apparent distress. He appears to have lost some weight to visual appearance since last seen by me about six to eight weeks ago. SKIN: No rashes, ecchymoses or lesions. Cool and dry. HEAD: Atraumatic. Normocephalic. No temporal or scalp tenderness. EYES: Pupils equal round and reactive. Extraocular motions intact. No scleral icterus. No injection or drainage. ENT: Nose without bleeding, purulent drainage or septal hematoma. Throat without erythema, tonsillar hypertrophy or exudate. Uvula midline. Airway patent. NECK: Trachea midline. No JVD or lymphadenopathy. Supple, nontender, no meningeal signs. CARDIOVASCULAR: Regular rate and rhythm with a 3-4/6 systolic aortic murmur to exam. There are no gallops, or rubs. RESPIRATORY: Breath sounds are equal bilaterally. There are rhonchi present with a few wheezes. There are no rales to exam. GASTROINTESTINAL: Abdomen soft, non-tender, nondistended. No hepato- splenomegaly or palpable masses. No guarding. Bowel sounds are present and appear normal. MUSCULOSKELETAL: Extremities without clubbing, cyanosis, or edema. No joint tenderness, effusion, or edema noted. No calf tenderness. Negative Homans sign bilaterally. NEUROLOGICAL: Awake and alert. Cranial nerves II through XII intact. Motor and sensory grossly within normal limits. Five out of 5 muscle strength in all muscle groups. Normal speech. Laboratory Laboratory Tests Test 05/27/17 00:45 05/27/17 04:37 05/27/17 09:28 White Blood Count 9.5 Red Blood Count 3.29 Hemoglobin 9.7 9.6 Hematocrit 29.2 29.3 Mean Corpuscular Volume 88.9 Mean Corpuscular Hemoglobin 29.4 Mean Corpuscular Hemoglobin Concent 33.1 Red Cell Distribution Width 16.1 Platelet Count 265 Mean Platelet Volume 7.7 Neutrophils (%) (Auto) 61.7 Lymphocytes (%) (Auto) 9.0 Monocytes (%) (Auto) 11.5 Eosinophils (%) (Auto) 17.1 Basophils (%) (Auto) 0.7 Neutrophils # (Auto) 5.9 Lymphocytes # (Auto) 0.9 Monocytes # (Auto) 1.1 Eosinophils # (Auto) 1.6 Basophils # (Auto) 0.1 CBC Comment DIFF FINAL Differential Comment Blood Urea Nitrogen 14 Creatinine 0.94 Random Glucose 89 Calcium Level 8.2 Magnesium Level 1.8 Sodium Level 139 Potassium Level 3.7 Chloride Level 106 Carbon Dioxide Level 24.3 Anion Gap 9 Estimat Glomerular Filtration Rate 76 Result Diagram: 05/27/17 0928 05/27/17 0437 Caprini VTE Risk Assessment Caprini VTE Risk Assessment: Mod/High Risk (score >= 2) VTE Pharm Contraindication: Hemorrhage Caprini Risk Assessment Model Point Value = 1 Point Value = 2 Point Value = 3 Point Value = 5 Age 41-60 Minor surgery BMI > 25 kg/m2 Swollen legs Varicose veins or History of unexplained or recurrent spontaneous Oral contraceptives or hormone replacement Sepsis (< 1 month) Serious lung disease, including pneumonia (< 1 month) Abnormal pulmonary function Acute myocardial infarction Congestive heart failure (< 1 month) History of inflammatory bowel disease Medical patient at bed rest Age 61-74 Arthroscopic surgery Major open surgery (> 45 min) Laparoscopic surgery (> 45 min) Malignancy Confined to bed (> 72 hours) Immobilizing plaster cast Central venous access Age >= 75 History of VTE Family history of VTE Factor V Leiden Prothrombin [id number] Lupus anticoagulant Anticardiolipin antibodies Elevated serum homocysteine Heparin-induced thrombocytopenia Other congenital or acquired thrombophilia Stroke (< 1 month) Elective arthroplasty Hip, pelvis, or leg fracture Acute spinal cord injury (< 1 month) Prophylaxis Regimen Total Risk Factor Score Risk Level Prophylaxis Regimen 0-1 Low Early ambulation 2 Moderate Order ONE of the following: *Sequential Compression Device (SCD) *Heparin 5000 units SQ BID 3-4 Higher Order ONE of the following medications: *Heparin 5000 units SQ TID *Enoxaparin/Lovenox 40 mg SQ daily (WT < 150 kg, CrCl > 30 mL/min) *Enoxaparin/Lovenox 30 mg SQ daily (WT < 150 kg, CrCl > 10-29 mL/min) *Enoxaparin/Lovenox 30 mg SQ BID (WT < 150 kg, CrCl > 30 mL/min) AND/OR *Sequential Compression Device (SCD) 5 or more Highest Order ONE of the following medications: *Heparin 5000 units SQ TID (Preferred with Epidurals) *Enoxaparin/Lovenox 40 mg SQ daily (WT < 150 kg, CrCl > 30 mL/min) *Enoxaparin/Lovenox 30 mg SQ daily (WT < 150 kg, CrCl > 10-29 mL/min) *Enoxaparin/Lovenox 30 mg SQ BID (WT < 150 kg, CrCl > 30 mL/min) AND *Sequential Compression Device (SCD) Assessment and Plan Assessment and Plan ASSESSMENT 1. Acute Lower Gastrointestinal Bleed. 2. Recurrent Diarrhea. 3. Chronic Obstructive Pulmonary Disease. 4. Bronchospasm. 5. Acute Blood Loss Anemia. 6. Coronary Artery Disease. 7. Normal Pressure Hydrocephalus. 8. Lung Cancer. 9. Colon Cancer-status post resection. PLAN 1. Admit to the hospital as an Inpatient. 2. Close monitoring of the Hgb/Hct status. 3. Consultation to General Surgery. 4. Consultation to Gastroenterology. 5. Intravenous Proton Pump Inhibitor. 6. Use of Home Medications only as needed. 7. DVT, PE and PUD prophylaxis. Tremaine Adames MD May 27, 2017 14:35
[2017-05-27 16:00] VITALS: BP 127/64; PULSE 81; RESP 16; TEMP 97.3; O2SAT 92
[2017-05-27] MEDS ORDERED: PEG (High)/E-LYTE SOLN 4000 ML BTL PO ONE (16:00)
[2017-05-27 20:00] VITALS: BP 132/58; PULSE 88; RESP 16; TEMP 97.8; O2SAT 94
[2017-05-28 00:43] VITALS: BP 143/62; PULSE 72; RESP 16; TEMP 97.3; O2SAT 93
[2017-05-28 08:00] VITALS: BP 122/59; PULSE 82; RESP 19; TEMP 97.5; O2SAT 96
[2017-05-28] MEDS: PANTOPRAZOLE SODIUM 40 MG VIAL IV PUSH SCH ×2 (08:23→22:13)
[2017-05-28] MEDS: BENZONATATE 100 MG CAP PO SCH ×3 (08:55→17:14)
[2017-05-28] MEDS: RESP: ALBUTEROL 2.5 MG/IPRATROPIUM 0.5 MG NEB (SCH) NEB ×3 (09:00→21:15)
--- NOTE | 2017-05-28 11:13 | GIPROC ---
[facility] [address] [facility]. [facility], [address] COLONOSCOPY PROCEDURE REPORT EXAM DATE: 05/28/2017 PATIENT NAME: Ananda Shore MR #: [id number] BIRTHDATE: 1930 ENDOSCOPIST: Tesfaye Arellano MD ORDER #: [id number] LUG BREAKER AND WIRE PULLER: Hayden Zuñiga and Maren Abdi STATUS: inpatient INDICATIONS: The patient is a 87 yr old male here for a colonoscopy due to hematochezia PROCEDURE PERFORMED: Colonoscopy with biopsy MEDICATIONS: Per Anesthesia and None. PREP QUALITY: poor PREP TYPE:GoLytely ESTIMATED BLOOD LOSS: None CONSENT: The patient understands the risks and benefits of the procedure and understands that these risks include, but are not limited to: sedation, allergic reaction, infection, perforation and/or bleeding. Alternative means of evaluation and treatment include, among others: physical exam, x-rays, and/or surgical intervention. The patient elects to proceed with this endoscopic procedure. medical equipment was checked for proper function. Hand hygiene and appropriate measures for infection prevention was taken. After the risks, benefits and alternatives of the procedure were thoroughly explained, Informed consent was verified, confirmed and timeout was successfully executed by the treatment team. A digital exam revealed external hemorrhoids The Pentax [id number] endoscope was introduced through the anus and advanced to the cecum, which was identified by both the appendix and ileocecal valve. The instrument was then slowly withdrawn as the colon was fully examined. COLON FINDINGS: Moderate diverticulosis was noted in the sigmoid colon. No bleeding was noted from the diverticulosis. A circumferential patch of abnormal mucosa was found in the descending colon. The mucosa was congested, erythematous, friable and had granularity. This was likely consistent with ulcerative colitis disease. A biopsy was performed using cold forceps. A large sized circumferential diffuse patch of abnormal mucosa was found in the sigmoid colon. The mucosa was congested, erythematous and friable. This was likely consistent with ulcerative colitis disease. Multiple biopsies were performed using cold forceps. Anastomosis left colon, and ? r colon. A circumferential patch of abnormal mucosa was found in the rectum. The mucosa was edematous, erythematous and friable. This was likely consistent with ulcerative colitis disease. A biopsy was performed using cold forceps. Retroflexed views revealed internal hemorrhoids and Retroflexed views revealed medium internal hemorrhoids The scope was then completely withdrawn from the patient and the procedure terminated. PROCEDURE WITHDRAWAL TIME:6minutes ADVERSE EVENTS: There were no complications. IMPRESSIONS: 1. Moderate diverticulosis was noted in the sigmoid colon 2. Circumferential abnormal mucosa was found in the descending colon; The mucosa was congested, erythematous, friable and had granularity; biopsy was performed using cold forceps 3. Large sized circumferential diffuse abnormal mucosa was found in the sigmoid colon; The mucosa was congested, erythematous and friable; multiple biopsies were performed using cold forceps 4. Anastomosis left colon, and ? r colon 5. Circumferential abnormal mucosa was found in the rectum; The mucosa was edematous, erythematous and friable; biopsy was performed using cold forceps 6. Retroflexed views revealed internal hemorrhoids 7. Retroflexed views revealed medium internal hemorrhoids 8. Revealed external hemorrhoids RECOMMENDATIONS: 1. Await biopsy results. Biopsy results will not be ready for 7-10 days. If you don't hear from us in two weeks, call our office for results. 2. High fiber diet. Avoid nuts, seeds, and popcorn. Chew your food well. RECALL: Return 1 month Colonoscopy, pending biopsy results Tesfaye Arellano MD eSigned: Tesfaye Arellano MD 05/28/2017 11:12 AM cc: PATIENT NAME: Ananda Shore MR#: [id number]
[2017-05-28] MEDS ORDERED: DIATRIZOATE MEGLUM/DIATRIZOATE SOD 9 ML CUP PO ONE (11:45)
[2017-05-28] MEDS ORDERED: PHENYLEPH/NS 1000 MCG/10 ML SYR IV ONE (12:00)
[2017-05-28] MEDS ORDERED: LIDOCAINE HCL 1% PF 5 ML SYRINGE OTHER ONE (12:00)
[2017-05-28] MEDS ORDERED: PROPOFOL 200 MG/20 ML AMP IV ONE (12:00)
--- NOTE | 2017-05-28 12:27 | HHI.PR ---
cc: Lance Morrison MD Subjective Subjective Notes Resting in bed Going for colonoscopy soon Objective Vitals/I&O Vital Signs Date Time Temp Pulse Resp B/P (MAP) Pulse Ox O2 Delivery O2 Flow Rate FiO2 05/28/17 11:18 97.9 79 16 119/55 (76) 94 Cardiovascular: Regular Lungs: Clear Abdomen: Non-distended, Non-tender, Other (midline incision well healed ) Extremities: No edema A/P Assessment and Plan 87 year old male appx 6 weeks post op from RIGHT hemicolectomy for colon cancer ; Bright red blood per rectum -Going for colonoscopy today -Hmg stable--- 9.6 -VSS -Will follow colonoscopy results Lizbeth Donnelly May 28, 2017 12:27
--- NOTE | 2017-05-28 15:30 | HHI.PR ---
Subjective Remarks He is resting in bed and awaiting the CT Scan of the Abdomen/Pelvis ordered by the Kitchen Utility Associate. He states that he is not with any abdominal pain. He had colonoscopy performed with findings consistent for colitis. He is to be with conservative treatment until the biopsy results have returned. Objective - Vital Signs Date Time Temp Pulse Resp B/P (MAP) Pulse Ox O2 Delivery O2 Flow Rate FiO2 05/28/17 11:18 97.9 79 16 119/55 (76) 94 05/28/17 08:00 97.5 82 19 122/59 (80) 96 05/28/17 00:43 97.3 72 16 143/62 (89) 93 05/27/17 20:00 97.8 88 16 132/58 (82) 94 05/27/17 16:00 97.3 81 16 127/64 (85) 92 I/O 05/27/17 05/27/17 05/27/17 05/28/17 05/28/17 05/28/17 06:59 14:59 22:59 06:59 14:59 22:59 Intake Total 120 ml 840 ml Output Total 300 ml Balance -300 ml 120 ml 840 ml Intake Oral 120 ml 240 ml Other 600 ml Output Urine Total 300 ml # Voids 3 2 # Bowel Movements 6 3 Result Diagram: 05/27/17 0928 05/27/17 0437 Objective Remarks GENERAL: Alert with complaint of some cough. SKIN: Warm and dry. HEAD: Normocephalic. Atraumatic. EYES: No scleral icterus. No injection or drainage. NECK: Supple, trachea midline. No JVD or lymphadenopathy. CARDIOVASCULAR: Regular rate and rhythm without murmurs, gallops, or rubs. RESPIRATORY: Breath sounds equal bilaterally. No accessory muscle use. There are a few rhonchi present. GASTROINTESTINAL: Abdomen soft, non-tender, nondistended. Bowels are present and appear normal. MUSCULOSKELETAL: No cyanosis, or edema. BACK: Nontender without obvious deformity. No CVA tenderness. A/P Assessment and Plan ASSESSMENT 1. 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 2. Acute Lower Gastrointestinal Bleed. 3. Recurrent Diarrhea. 4. Chronic Obstructive Pulmonary Disease. 5. Mild Bronchospasm-improved. 6. Acute Blood Loss Anemia. 7. Coronary Artery Disease. 8. Normal Pressure Hydrocephalus. 9. Lung Cancer. 10. Colon Cancer-status post resection. PLAN 1. Discussion done with Utilization Review and I agree this patient should be Observation Admission Status. 2. CT Scan of the Abdomen/Pelvis is pending. 3. General Surgery and Gastroenterology dispositions. 4. Discharge Planning. 5. DVT, PE and PUD prophylaxis. Tremaine Adames MD May 28, 2017 15:30
--- NOTE | 2017-05-28 15:35 | EKG ---
Date Performed: 05/27/2017 Time Performed: 16:48:08 PTAGE: 87 years EKG: Sinus rhythm WITH OCCASIONAL VENTRICULAR PREMATURE COMPLEXES WITH OCCASIONAL SUPRAVENTRICULAR PREMATURE COMPLEXES Compared to prior tracing no significant change BORDERLINE ECG PREVIOUS TRACING : 04/13/2017 07.10 DOCTOR: Mehrdad Girard Interpretating Date/Time 05/28/2017 15:34:45
[2017-05-28 16:00] VITALS: BP 124/60; PULSE 55; RESP 20; TEMP 97.5; O2SAT 96
[2017-05-28] MEDS ORDERED: DEXAMETHASONE SOD PHOS 4 MG/ML VIAL IV PUSH ONE (17:00)
[2017-05-28 20:00] VITALS: BP 108/57; PULSE 81; RESP 20; TEMP 97.8; O2SAT 93
--- NOTE | 2017-05-28 21:30 | RADRPT ---
EXAM DATE/TIME: 05/28/2017 18:45 [place] COMPARISON: No previous studies available for comparison. INDICATIONS : Abdomen pain. IV CONTRAST: 95 cc Omnipaque 350 (iohexol) IV ORAL CONTRAST: Partial prescribed oral contrast ingested. RADIATION DOSE: 12.32 CTDIvol (mGy) MEDICAL HISTORY : Cardiovascular disease. Hypertension. Carcinoma, colon.COPD GERD SURGICAL HISTORY : CABG Colon resection.AV Shunt ENCOUNTER: Initial ACUITY: 2 days PAIN SCALE: 5/10 LOCATION: Bilateral abdomen TECHNIQUE: Volumetric scanning of the abdomen and pelvis was performed. Using automated exposure control and ad justment of the mA and/or kV according to patient size, radiation dose was kept as low as reasonably achievable to obtain optimal diagnostic quality images. DICOM format image data is available electro nically for review and comparison. FINDINGS: LOWER LUNGS: There is a 4.9 x 3.8 cm mass in the posterior right lower lung devoid of air bronchograms. Small remi ateral pleural effusions. LIVER: Homogeneous density without lesion. There is no dilation of the biliary tree. There are several rhona cified gallstones layering in the dependent portion of the gallbladder (fundus) measuring up to 1 cm in size. The common bile duct is not dilated.. SPLEEN: Normal size without lesion. PANCREAS: Within normal limits. KIDNEYS: Normal in size and shape. There is no mass, stone or hydronephrosis. ADRENAL GLANDS: Within normal limits. VASCULAR: Infrarenal abdominal aortic aneurysm measures 3.1 cm in AP dimension. There is dilation of both marley c arteries, measuring 1.6 cm on the right and 1.5 cm on the left. BOWEL/MESENTERY: No dilated loops of small bowel. Oral contrast passes through to the right colon. There is a short segment area of luminal narrowing in the region of the hepatic flexure measuring 2.5 cm in length wit h a string-like narrowing of the lumen; this is best seen on image #42. ABDOMINAL WALL: Shunt tubing courses down the right anterior abdominal wall. The shunt tube does not cross into the peritoneum and the shunt tubing is coiled in the soft tissues of the anterior right mid abdominal wal l where there is an associated smooth margin fluid density collection measuring up to 6.6 cm. RETROPERITONEUM: There is no lymphadenopathy. BLADDER: No wall thickening or mass. REPRODUCTIVE: Within normal limits. INGUINAL: Small bilateral fat-containing inguinal hernias. MUSCULOSKELETAL: Within normal limits for patient age. CONCLUSION: 1. 5 cm mass in the right lower lung highly suspicious for malignancy. 2. Shunt tubing terminates in the subcutaneous tissues the right lower quadrant and there is an assoc iated greater than 6 cm fluid collection surrounding the distal coiled tube. 3. Short segment string-like narrowing of the colon at the level of hepatic flexure highly suspicious for a colonic malignancy. 4. Distal abdominal aortic aneurysm extending into iliac vessels. Nate Cervantes MD on May 28, 2017 at 21:21 Board Certified Radiologist. This report was verified electronically.
[2017-05-29] VITALS: BP 123/59; PULSE 88; RESP 20; TEMP 97.4; O2SAT 92
[2017-05-29 04:00] VITALS: BP 111/56; PULSE 78; RESP 18; TEMP 97.6; O2SAT 96
[2017-05-29] MEDS: RESP: ALBUTEROL 2.5 MG/IPRATROPIUM 0.5 MG NEB (SCH) NEB (07:47)
--- NOTE | 2017-05-29 07:57 | HHI.PR ---
Subjective Remarks He is lying in bed and reports no new adverse changes. He appears to be tolerating all of his current medications. Disposition is given that he is improved for discharge. Objective - Vital Signs Date Time Temp Pulse Resp B/P (MAP) Pulse Ox O2 Delivery O2 Flow Rate FiO2 05/29/17 04:00 97.6 78 18 111/56 (74) 96 05/29/17 00:00 97.4 88 20 123/59 (80) 92 05/28/17 20:00 97.8 81 20 108/57 (74) 93 05/28/17 16:00 97.5 55 20 124/60 (81) 96 05/28/17 11:18 97.9 79 16 119/55 (76) 94 05/28/17 08:00 97.5 82 19 122/59 (80) 96 I/O 05/28/17 05/28/17 05/28/17 05/29/17 05/29/17 05/29/17 07:00 15:00 23:00 07:00 15:00 23:00 Intake Total 840 ml 120 ml 600 ml Output Total 400 ml Balance 840 ml 120 ml 200 ml Intake Oral 240 ml 120 ml 600 ml Other 600 ml Output Urine Total 400 ml # Voids 2 # Bowel Movements 3 2 Result Diagram: 05/27/17 0928 05/27/17 0437 Objective Remarks GENERAL: Alert and in no major distress. SKIN: Warm and dry. HEAD: Normocephalic. EYES: No scleral icterus. No injection or drainage. NECK: Supple, trachea midline. No JVD or lymphadenopathy. CARDIOVASCULAR: Regular rate and rhythm without murmurs, gallops, or rubs. RESPIRATORY: Breath sounds equal bilaterally. No accessory muscle use. GASTROINTESTINAL: Abdomen soft, non-tender, nondistended. MUSCULOSKELETAL: No cyanosis, or edema. BACK: Nontender without obvious deformity. No CVA tenderness. A/P Assessment and Plan ASSESSMENT 1. 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 2. Acute Lower Gastrointestinal Bleed. 3. Recurrent Diarrhea. 4. Chronic Obstructive Pulmonary Disease. 5. Mild Bronchospasm-improved. 6. Acute Blood Loss Anemia. 7. Coronary Artery Disease. 8. Normal Pressure Hydrocephalus. 9. Lung Cancer. 10. Colon Cancer-status post resection. MEDICALLY IMPROVED PLAN 1. Discussion done with Utilization Review and I agree this patient should be Observation Admission Status. 2. CT Scan of the Abdomen/Pelvis is pending. 3. General Surgery and Gastroenterology dispositions. 4. Discharge Planning. 5. DVT, PE and PUD prophylaxis. HOME TODAY Tremaine Adames MD May 29, 2017 07:57
[2017-05-29 08:00] VITALS: BP 135/63; PULSE 81; RESP 20; TEMP 97.4; O2SAT 95
[2017-05-29] MEDS ORDERED: FLUTI220I INH (08:07)
[2017-05-29] MEDS ORDERED: BENZ100 PO (08:07)
[2017-05-29] MEDS ORDERED: FLUTICASONE PROPIONATE 220 MCG/ACT 12 GM INHALER INH SCH (09:00)
[2017-05-29] MEDS: PANTOPRAZOLE SODIUM 40 MG VIAL IV PUSH SCH (09:01)
[2017-05-29] MEDS: BENZONATATE 100 MG CAP PO SCH (09:01)
== END 2017-05-29 10:50 ==
LOC: NEPC 00:14 → NEDA 00:37 → INTOOBSV 00:37 → N07A 03:00
PROVIDERS: ADMIT Internal Medicine; ATTEND Internal Medicine
DX: K92.2 Gastrointestinal hemorrhage, unspecified (principal); K52.9 Noninfective gastroenteritis and colitis, unspecified; K57.30 Diverticulosis of large intestine without perforation or abscess without bleeding; K64.8 Other hemorrhoids; K64.4 Residual hemorrhoidal skin tags; J44.9 Chronic obstructive pulmonary disease, unspecified; J98.01 Acute bronchospasm; D62 Acute posthemorrhagic anemia; I25.10 Atherosclerotic heart disease of native coronary artery without angina pectoris; K21.9 Gastro-esophageal reflux disease without esophagitis; G91.2 (Idiopathic) normal pressure hydrocephalus; C34.90 Malignant neoplasm of unspecified part of unspecified bronchus or lung; I10 Essential (primary) hypertension; I71.4 Abdominal aortic aneurysm, without rupture; K40.20 Bilateral inguinal hernia, without obstruction or gangrene, not specified as recurrent; E78.5 Hyperlipidemia, unspecified; N40.0 Benign prostatic hyperplasia without lower urinary tract symptoms; M19.90 Unspecified osteoarthritis, unspecified site; Z79.899 Other long term (current) drug therapy; Z79.82 Long term (current) use of aspirin; Z98.2 Presence of cerebrospinal fluid drainage device; Z87.891 Personal history of nicotine dependence; Z86.73 Personal history of transient ischemic attack (TIA), and cerebral infarction without residual deficits; Z86.718 Personal history of other venous thrombosis and embolism; Z95.1 Presence of aortocoronary bypass graft; Z85.038 Personal history of other malignant neoplasm of large intestine; Z90.49 Acquired absence of other specified parts of digestive tract
CPT/HCPCS: 00810; 45380; 74177; 80048; 83735; 85014; 85018; 85025; 88305; 93005; 94640; 94664; 96374; 96375; 96376; 99285; C9113; G0378; J1100; J2370; J3010; Q9963; Q9967